=== PATIENT | female | born 1960 | race Caucasian/White ===

== ENCOUNTER → 2019-02-27 09:43 | Outpatient (CLI) | payer OTHER, SELFPAY ==
[2019-02-27 11:06] LABS: Alanine Aminotransferase 63 IU/L (9-52); Albumin 4.4 g/dL (3.5-5.0); Albumin Globulin Ratio 1.3 (1.0-2.8); Alkaline Phosphatase 83 U/L (38-126); Aspartate Aminotransferase 42 IU/L (14-36); BUN Creatinine Ratio 17.5 (6-22); Bilirubin Total 0.4 mg/dL (0.2-1.3); Blood Urea Nitrogen 14 mg/dL (7-17); Calcium 9.4 mg/dL (8.4-10.2); Carbon Dioxide 29 mmol/L (22-32); Chloride 105 mmol/L (98-107); Cholesterol 169 mg/dL (140-199); Estimated Glomerular Filt Rate > 60.0 mL/min (>60); Globulin 3.5 g/dL (1.7-4.1); Glucose 91 mg/dL (70-100); HDL Cholesterol 76 mg/dL (40-60); HEMOLYSIS < 15 (0-50); LDL Cholesterol Calculated 82 mg/dL (<100); Potassium 3.9 mmol/L (3.4-5.1); Sodium 142 mmol/L (137-145); Total Protein 7.9 g/dL (6.3-8.2); Triglycerides 55 mg/dL (35-150)
[2019-02-27 11:37] LABS: Thyroid Stimulating Hormone 2.58 uIU/mL (0.47-4.68)
== END ==
PROVIDERS: PCP Physician Assistant; Visit Provider Physician Assistant
DX: E78.5 Hyperlipidemia, unspecified (principal); Z79.51 Long term (current) use of inhaled steroids
CPT/HCPCS: 36415; 80053; 80061; 84443

== ENCOUNTER → 2019-03-08 14:38 | Outpatient (CLI) | payer OTHER, SELFPAY | PROVIDERS: PCP Physician Assistant; Visit Provider Physician Assistant | DX: M85.852 Other specified disorders of bone density and structure, left thigh (principal); Z78.0 Asymptomatic menopausal state; E28.39 Other primary ovarian failure; Z79.51 Long term (current) use of inhaled steroids | CPT/HCPCS: 77080 ==

== ENCOUNTER → 2019-03-20 12:57 | Outpatient (CLI) | payer OTHER, SELFPAY | PROVIDERS: PCP Physician Assistant; Visit Provider Physician Assistant | DX: Z01.84 Encounter for antibody response examination (principal) | CPT/HCPCS: 36415; 86765 ==

== ENCOUNTER → 2019-06-20 12:13 | Outpatient (CLI) | payer OTHER, SELFPAY ==
[2019-06-20 12:48] LABS: Add Manual Diff / Slide Review NO; Basophils Absolute Auto 100 /uL (0-100); Basophils Percent Auto 0.8 % (0-2); Eosinophils Absolute Auto 100 /uL (0-450); Eosinophils Percent Auto 1.4 % (2-4); Hematocrit 42.1 % (36-46); Hemoglobin 14.1 g/dL (12.0-16.0); Lymphocytes Absolute Auto 1400 /uL (1100-4500); Mean Corpuscular HGB Conc 33.4 % (30-36); Mean Corpuscular Hemoglobin 30.1 PG (26-34); Monocytes Absolute Auto 500 /uL (0-900); Monocytes Percent Auto 7.2 % (3-14); Neutrophils Absolute Auto 5100 /uL (1500-7000); Neutrophils Percent Auto 70.6 % (50-75); Platelet Count 270 X10^3/uL (150-400); Red Blood Cell Count 4.68 X10^6/uL (4.0-5.2); Red Cell Distribution Width 13.4 % (11.6-14.8); White Blood Cell Count 7.2 X10^3/uL (4.5-11.0)
[2019-06-20 13:18] LABS: BUN Creatinine Ratio 24.3 (6-22); Blood Urea Nitrogen 17 mg/dL (7-17); Calcium 9.9 mg/dL (8.4-10.2); Carbon Dioxide 29 mmol/L (22-32); Chloride 105 mmol/L (98-107); Estimated Glomerular Filt Rate > 60.0 mL/min (>60); Glucose 91 mg/dL (70-100); HEMOLYSIS < 15 (0-50); Sodium 141 mmol/L (137-145)
== END ==
PROVIDERS: PCP Physician Assistant; Visit Provider Hospitalist
DX: R42 Dizziness and giddiness (principal)
CPT/HCPCS: 36415; 80048; 85025

== ENCOUNTER → 2019-07-02 17:06 | Outpatient (CLI) | payer OTHER, SELFPAY ==
--- NOTE | 2019-07-02 | DI.MG.S_ITS ---
BILATERAL DIGITAL SCREENING MAMMOGRAM 3D/2D WITH CAD: 07/02/2019 CLINICAL: Routine screening. Comparison is made to exams dated: 03/08/2016 mammogram, 03/08/2017 mammogram, 03/28/2017 ultrasound, and 05/04/2018 mammogram - [facility]. The tissue of both breasts is heterogeneously dense. This may lower the sensitivity of mammography. Current study was also evaluated with a Computer Aided Detection (CAD) system. There is a biopsy clip in the right breast. No significant masses, calcifications, or other findings are seen in either breast. There has been no significant interval change. IMPRESSION: NEGATIVE There is no mammographic evidence of malignancy. A 1 year screening mammogram is recommended. This exam was interpreted at Station ID: [id number]. NOTE: For mammograms, a report in lay terms will be sent to the patient. Approximately 15% of breast malignancies will not be visualized mammographically. In the management of a palpable breast mass, a negative mammogram must not discourage biopsy of a clinically suspicious lesion. Electronically Signed By: Rich germain/toi:07/03/2019 08:18:29 letter sent: Normal Exam ACR BI-RADS Category 1: Negative 3341F
== END ==
PROVIDERS: Family Provider Physician Assistant; PCP Physician Assistant; Visit Provider Physician Assistant
DX: Z12.31 Encounter for screening mammogram for malignant neoplasm of breast (principal)
CPT/HCPCS: 77063; 77067

== ENCOUNTER → 2019-09-03 10:24 | Outpatient (CLI) | payer OTHER, SELFPAY ==
[2019-09-03 11:48] LABS: Alanine Aminotransferase 43 IU/L (<35); Albumin 4.6 g/dL (3.5-5.0); Albumin Globulin Ratio 1.6 (1.0-2.8); Alkaline Phosphatase 101 U/L (38-126); Aspartate Aminotransferase 30 IU/L (14-36); Bilirubin Total 0.4 mg/dL (0.2-1.3); Bilirubin Unconjugated 0.4 mg/dL (0.0-1.1); Globulin 2.9 g/dL (1.7-4.1); HEMOLYSIS < 15 (0-50); Total Protein 7.5 g/dL (6.3-8.2)
== END ==
PROVIDERS: Family Provider Physician Assistant; PCP Physician Assistant; Visit Provider Physician Assistant
DX: R74.8 Abnormal levels of other serum enzymes (principal)
CPT/HCPCS: 36415; 80076

== ENCOUNTER → 2020-04-10 10:23 | Outpatient (CLI) | payer OTHER, SELFPAY ==
[2020-04-10 11:35] LABS: Hematocrit 41.2 % (36-46); Hemoglobin 13.6 g/dL (12.0-16.0); Mean Corpuscular HGB Conc 33.1 % (30-36); Mean Corpuscular Hemoglobin 29.7 PG (26-34); Mean Corpuscular Volume 89.8 fL (80-100); Platelet Count 277 X10^3/uL (150-400); Red Blood Cell Count 4.59 X10^6/uL (4.0-5.2); Red Cell Distribution Width 13.6 % (11.6-14.8); White Blood Cell Count 7.7 X10^3/uL (4.5-11.0)
[2020-04-10 12:01] LABS: Alanine Aminotransferase 55 IU/L (<35); Albumin 4.3 g/dL (3.5-5.0); Albumin Globulin Ratio 1.3 (1.0-2.8); Alkaline Phosphatase 114 U/L (38-126); Aspartate Aminotransferase 35 IU/L (14-36); BUN Creatinine Ratio 19.3 (6-22); Bilirubin Total 0.6 mg/dL (0.2-1.3); Blood Urea Nitrogen 16 mg/dL (7-17); Calcium 9.9 mg/dL (8.4-10.2); Carbon Dioxide 30 mmol/L (22-32); Chloride 104 mmol/L (98-107); Cholesterol 175 mg/dL (140-199); Estimated Glomerular Filt Rate > 60.0 mL/min (>60); Globulin 3.2 g/dL (1.7-4.1); Glucose 85 mg/dL (70-100); HDL Cholesterol 65 mg/dL (40-60); HEMOLYSIS < 15 (0-50); LDL Cholesterol Calculated 91 mg/dL (<100); Potassium 4.8 mmol/L (3.4-5.1); Sodium 138 mmol/L (137-145); Total Protein 7.5 g/dL (6.3-8.2); Triglycerides 97 mg/dL (35-150)
== END ==
PROVIDERS: Family Provider Physician Assistant; Referring Provider Nurse Practitioner Family; Visit Provider Nurse Practitioner Family
DX: Z00.00 Encounter for general adult medical examination without abnormal findings (principal); E78.00 Pure hypercholesterolemia, unspecified; J45.40 Moderate persistent asthma, uncomplicated
CPT/HCPCS: 36415; 80053; 80061; 85027

== ENCOUNTER → 2020-05-16 08:51 | Outpatient (CLI) | payer OTHER, SELFPAY ==
[2020-05-16 10:33] LABS: Alanine Aminotransferase 41 IU/L (<35); Albumin 4.3 g/dL (3.5-5.0); Albumin Globulin Ratio 1.4 (1.0-2.8); Alkaline Phosphatase 77 U/L (38-126); Aspartate Aminotransferase 33 IU/L (14-36); Bilirubin Total 0.4 mg/dL (0.2-1.3); Bilirubin Unconjugated 0.4 mg/dL (0.0-1.1); Globulin 3.1 g/dL (1.7-4.1); HEMOLYSIS < 15 (0-50); Total Protein 7.4 g/dL (6.3-8.2)
== END ==
PROVIDERS: Family Provider Physician Assistant; PCP Nurse Practitioner Family; Referring Provider Nurse Practitioner Family; Visit Provider Nurse Practitioner Family
DX: R74.8 Abnormal levels of other serum enzymes (principal)
CPT/HCPCS: 36415; 80076

== ENCOUNTER → 2020-05-30 10:23 | Outpatient (CLI) | payer OTHER, SELFPAY ==
[2020-05-30 12:56] LABS: TSH w/ Reflex to FT4 1.42 uIU/mL (0.47-4.68)
[2020-05-31 09:09] LABS: HBsAg Screen Negative (Negative); Hepatitis A Antibody IgM Negative (Negative); Hepatitis B Core Antibody IgM Negative (Negative); Hepatitis C Antibody 0.1 s/co ratio (0.0-0.9)
[2020-06-01 12:36] LABS: ANA Screen, IFA Negative (.)
[2020-06-04 15:48] LABS: Smooth Muscle Antibody 7 Units (0-19)
== END ==
PROVIDERS: Family Provider Physician Assistant; PCP Nurse Practitioner Family; Referring Provider Nurse Practitioner Family; Visit Provider Nurse Practitioner Family
DX: R74.8 Abnormal levels of other serum enzymes (principal)
CPT/HCPCS: 36415; 80074; 83516; 84443; 86038

== ENCOUNTER → 2020-06-03 17:06 | Outpatient (CLI) | payer OTHER, SELFPAY ==
--- NOTE | 2020-06-03 17:09 | DI.US.S_ITS ---
PROCEDURE: US ABDOMEN COMPLETE INDICATIONS: elevated enzymes TECHNIQUE: Real-time scanning was performed of the abdominal and retroperitoneal organs, with image documentation. COMPARISON: None. FINDINGS: Liver: Liver is normal in size and homogeneous in echotexture. Gallbladder: The gallbladder wall measures 1.4 mm in diameter. No stones, sludge, pericholecystic fluid, or sonographic Parra sign. Multiple hyperechoic nonmobile foci are present along the gallbladder wall, the largest of which measures 5 mm in diameter and likely represents small gallbladder polyps. Biliary ducts: Intrahepatic bile ducts are non-dilated. Extrahepatic bile duct caliber measures 1.6 mm. Normal is 6-7 mm or less in diameter, or 10 mm or less post-cholecystectomy. Pancreas: Visualized portions of the pancreas are sonographically normal. Spleen: Spleen is normal in size and homogeneous in echotexture. Kidneys: Kidneys are normal in size and echotexture. Right kidney measures 11.3 cm long; left kidney measures 11.1 cm long. No hydronephrosis or nephrolithiasis. No solid masses. Aorta: Visualized aorta is normal in caliber at less than 3 cm. Iliacs: Proximal common iliac arteries are normal in caliber at less than 2.5 cm. IVC: Intrahepatic inferior vena cava is patent. Miscellaneous: No free abdominal fluid. IMPRESSION: 1. Gallbladder polyps under 6 mm in diameter. No further surveillance recommended. 2. No cholelithiasis or findings to suggest choledocholithiasis or acute cholecystitis. Dictated by: Lacey Vieira M.D. on 06/04/2020 at 11:03 Approved by: Lacey Vieira M.D. on 06/04/2020 at 11:24
== END ==
PROVIDERS: Family Provider Physician Assistant; PCP Nurse Practitioner Family; Referring Provider Nurse Practitioner Family; Visit Provider Nurse Practitioner Family
DX: R74.8 Abnormal levels of other serum enzymes (principal)
CPT/HCPCS: 76700

== ENCOUNTER → 2020-08-04 17:19 | Outpatient (CLI) | payer OTHER, SELFPAY ==
--- NOTE | 2020-08-04 17:20 | DI.MG.S_ITS ---
BILATERAL DIGITAL SCREENING MAMMOGRAM 3D/2D WITH CAD: 08/04/2020 CLINICAL: Routine screening. Comparison is made to exams dated: 07/02/2019 mammogram - [facility], 05/04/2018 mammogram, and 03/08/2017 mammogram - [facility]. The tissue of both breasts is heterogeneously dense. This may lower the sensitivity of mammography. Current study was also evaluated with a Computer Aided Detection (CAD) system. There is a biopsy clip in the right breast. No significant masses, calcifications, or other findings are seen in either breast. There has been no significant interval change. IMPRESSION: NEGATIVE There is no mammographic evidence of malignancy. A 1 year screening mammogram is recommended. This exam was interpreted at Station ID: [id number]. NOTE: For mammograms, a report in lay terms will be sent to the patient. Approximately 15% of breast malignancies will not be visualized mammographically. In the management of a palpable breast mass, a negative mammogram must not discourage biopsy of a clinically suspicious lesion. Electronically Signed By: Rachid prince/toi:08/04/2020 18:01:06 letter sent: Normal Exam ACR BI-RADS Category 1: Negative 3341F
== END ==
PROVIDERS: Family Provider Physician Assistant; PCP Nurse Practitioner Family; Referring Provider Nurse Practitioner Family; Visit Provider Nurse Practitioner Family
DX: Z12.31 Encounter for screening mammogram for malignant neoplasm of breast (principal)
CPT/HCPCS: 77063; 77067

== ENCOUNTER → 2020-11-14 10:05 | Outpatient (CLI) | payer OTHER, SELFPAY ==
[2020-11-14 11:25] LABS: Alanine Aminotransferase 37 IU/L (<35); Albumin 4.5 g/dL (3.5-5.0); Albumin Globulin Ratio 1.6 (1.0-2.8); Alkaline Phosphatase 71 U/L (38-126); Aspartate Aminotransferase 32 IU/L (14-36); BUN Creatinine Ratio 22.7 (6-22); Bilirubin Total 0.4 mg/dL (0.2-1.3); Blood Urea Nitrogen 17 mg/dL (7-17); Calcium 9.5 mg/dL (8.4-10.2); Carbon Dioxide 30 mmol/L (22-32); Chloride 105 mmol/L (98-107); Estimated Glomerular Filt Rate > 60.0 mL/min (>60); Globulin 2.9 g/dL (1.7-4.1); Glucose 65 mg/dL (80-110); HEMOLYSIS < 15 (0-50); Potassium 3.9 mmol/L (3.4-5.1); Sodium 141 mmol/L (137-145); Total Protein 7.4 g/dL (6.3-8.2)
== END ==
PROVIDERS: Family Provider Physician Assistant; PCP Nurse Practitioner Family; Referring Provider Nurse Practitioner Family; Visit Provider Nurse Practitioner Family
DX: R74.8 Abnormal levels of other serum enzymes (principal)
CPT/HCPCS: 36415; 80053

== ENCOUNTER 2020-12-27 09:09 | Emergency (ER) | payer OTHER, SELFPAY ==
[2020-12-27] VITALS (8 sets, daily range): BP systolic 138–163; BP diastolic 65–76; PULSE 59–82; RESP 11–23; TEMP 35.9–36.9; O2SAT 89–100; BMI 26.6
--- NOTE | 2020-12-27 09:13 | DI.RAD.S_ITS ---
PROCEDURE: XR CHEST 1V INDICATIONS: Chest pain TECHNIQUE: One view of the chest was acquired. COMPARISON: None. FINDINGS: Surgical changes and devices: None. Lungs and pleura: There is a right perihilar masslike opacity seen that measures up to 4.5 cm. Lungs are otherwise clear. No pleural effusions or pneumothorax. Mediastinum: Mediastinal contours appear normal. Heart size is normal. Bones and chest wall: No suspicious bony lesions. Mild dextroconvex scoliotic curvature is seen. Age-appropriate bony degenerative changes are seen. Overlying soft tissues appear unremarkable. IMPRESSION: 4.5 cm right perihilar masslike opacity seen. Concern is raised for neoplasm, although differential diagnosis would also focal atelectasis and prominent vascular structures. When clinically appropriate, a dedicated chest CT with IV contrast would be recommended for further evaluation. Note: Findings and recommendations discussed by telephone with Dr. Fernandes at 8:32 a.m. [place] time on December 27, 2020. Dictated by: Bernabe Mccain M.D. on 12/27/2020 at 8:31 Approved by: Bernabe Mccain M.D. on 12/27/2020 at 8:34
[2020-12-27 09:36] LABS: Add Manual Diff / Slide Review NO; Basophils Absolute Auto 100 /uL (0-100); Eosinophils Absolute Auto 100 /uL (0-450); Eosinophils Percent Auto 1.8 % (2-4); Hematocrit 40.9 % (36-46); Hemoglobin 14.1 g/dL (12.0-16.0); Lymphocytes Absolute Auto 1500 /uL (1100-4500); Lymphocytes Percent Auto 22.2 % (25-40); Mean Corpuscular HGB Conc 34.5 % (30-36); Mean Corpuscular Hemoglobin 30.8 PG (26-34); Mean Corpuscular Volume 89.3 fL (80-100); Monocytes Absolute Auto 500 /uL (0-900); Neutrophils Absolute Auto 4400 /uL (1500-7000); Platelet Count 232 X10^3/uL (150-400); Red Blood Cell Count 4.59 X10^6/uL (4.0-5.2); Red Cell Distribution Width 13.2 % (11.6-14.8); White Blood Cell Count 6.6 X10^3/uL (4.5-11.0)
[2020-12-27 09:42] LABS: Alanine Aminotransferase 37 IU/L (<35); Albumin 4.4 g/dL (3.5-5.0); Albumin Globulin Ratio 1.4 (1.0-2.8); Alkaline Phosphatase 74 U/L (38-126); Aspartate Aminotransferase 33 IU/L (14-36); BUN Creatinine Ratio 23.3 (6-22); Bilirubin Total 0.3 mg/dL (0.2-1.3); Blood Urea Nitrogen 17 mg/dL (7-17); Calcium 9.8 mg/dL (8.4-10.2); Carbon Dioxide 30 mmol/L (22-32); Chloride 105 mmol/L (98-107); Creatine Kinase 195 U/L (30-135); Estimated Glomerular Filt Rate > 60.0 mL/min (>60); Globulin 3.2 g/dL (1.7-4.1); Glucose 99 mg/dL (80-110); HEMOLYSIS < 15 (0-50); Lipase 159 U/L (23-300); Potassium 4.3 mmol/L (3.4-5.1); Sodium 141 mmol/L (137-145); Total Protein 7.6 g/dL (6.3-8.2)
[2020-12-27] MEDS: SODIUM CHLORIDE 0.9% 1,000 ML 1000 ML IV (09:47)
[2020-12-27 09:53] LABS: Troponin I < 0.012 ng/mL (0.01-0.034)
[2020-12-27 09:57] LABS: CKMB % Relative Index 1.6 % (1.5-5.0); Creatine Kinase MB 3.18 ng/mL (<2.37)
--- NOTE | 2020-12-27 10:19 | ED.CHESTPAIN ---
HPI - Chest Pain General Chief Complaint: Chest Pain Stated Complaint: LEFT SIDE CHEST AND ARM PAIN Time Seen by Provider: 12/27/20 09:12 Source: patient Mode of arrival: Family Vehicle Limitations: no limitations History of Present Illness HPI narrative: Patient is a 60-year-old female who reports only past medical history is asthma. Here for evaluation of pain to left side of her neck and her left shoulder and down the left side of her are. States started last evening around dinnertime and continued last evening. It was worse when she laid on her left side. She stated that she did not have any chest pain. No shortness of breath. The time of my evaluation she felt like things were improving somewhat. She is afebrile. Has not tried anything for the symptoms Related Data Home Medications Medication Instructions Recorded Confirmed Glucosamine/Chondroitin 1 cap PO DAILY 02/27/19 12/02/20 multivitamin 1 tab PO DAILY 02/27/19 12/02/20 Calcium/Vitamin D3 2 tab PO DAILY 03/20/19 12/02/20 Previous Rx's Medication Instructions Recorded albuterol sulfate 90 mcg/actuation 1 - 2 puff INHALATION Q4-6H PRN #8 04/09/20 aerosol inhaler gram atorvastatin 40 mg tablet 40 mg PO BEDTIME #90 tab 04/09/20 fluticasone 250 mcg-salmeterol 50 1 inhalation INHALATION BID #180 04/09/20 mcg/dose blistr powdr for each inhalation montelukast 10 mg tablet 10 mg PO QPM #90 tab 04/09/20 Allergies Allergy/AdvReac Type Severity Reaction Status Date / Time amoxicillin Allergy Mild Rash and Verified 12/02/20 16:09 hives Review of Systems Constitutional Constitutional: Denies fatigue, Denies fever(s) and Denies headache(s) ENT Ears, Nose, Mouth, and Throat: Denies dizziness and Denies headache(s) Cardiovascular Cardiovascular: Denies chest pain and Denies dyspnea Respiratory Respiratory: Denies dyspnea Gastrointestinal Gastrointestinal: Denies abdominal pain, Denies nausea and Denies vomiting Genitourinary Genitourinary: Denies dysuria Genitourinary: Denies dysuria Musculoskeletal Comments: Left side of neck and left shoulder and left arm pain Integumentary/Breasts Skin/Breast: Denies lesions and Denies rash Neurologic Neurologic: Denies behavioral changes, Denies dizziness and Denies headache(s) Psychiatric Psychiatric: Denies behavioral changes Endocrine Endocrine: Denies fatigue Hematologic/Lymphatic On Anticoagulants: No Allergic/Immunologic Allergic/Immunologic: Denies urticaria Patient History Medical History Abnormal Pap smear of cervix (~1989) Actinic keratosis Asthma (~2000) Chicken pox (~1967) History of urinary incontinence (~1995) Liver enzyme elevation Low blood sugar (11/2020) Seasonal allergies (~2014) Skin problem (~2013) Vision disorder Surgical History Anesthesia History of section (~1990) History of colonoscopy (~2009) S/P LEEP (~1997) Family History Father History of heart disease Mother Diabetes mellitus Sister Arthritis Sister Rheumatoid arthritis Grandfather History of heart disease Social History Smoking Status: Never smoker second hand exposure: Yes (I was until 2 years ago (as of 02/27/19).) alcohol intake: current (wine on occasions.) substance use type: does not use Smoking Status: Never smoker alcohol intake frequency: 0-2 drinks per day Substance Use Type: does not use Exam Initial Vital Signs Initial Vital Signs: Vital Signs Temperature 96.6 F L 12/27/20 09:18 Pulse Rate 79 12/27/20 09:18 Respiratory Rate 18 12/27/20 09:18 Blood Pressure 163/76 H 12/27/20 09:18 Pulse Oximetry 98 12/27/20 09:18 Const General: cooperative and comfortable Limitations: mental status not altered [facility] Head: normal to inspection and normocephalic Neck Lymphatic: No lymphadenopathy Chest Chest: No crepitus and No tenderness Resp Effort & Inspection: normal respiratory effort Auscultation: clear to auscultation bilaterally Cardio Rate: regular rate Rhythm: regular rhythm GI Inspection: non-distended Palpation: soft, No firm and No tender Back/Spine/Pelvis Cervical Spine: No cervical muscular tenderness and No cervical spinal tenderness Thoracic/Lumbar Spine: No thoracic spinal tenderness and No lumbar spinal tenderness Skin Lesions: no lesions Rashes: no rashes Neuro General: patient alert, patient awake and patient oriented x3 Cognition: normal cognition Speech: speech normal Extrem General: normal to inspection and capillary refill normal Psych Appearance: grossly normal and well kempt Scores HEART Score Heart Score history: Slightly Suspicious Heart Score EKG: Normal Heart Score Age: 45-64 years old Heart Score risk factors: No known risk factors Heart Score troponin: < or = to normal limit Heart Score Total: 1 Course Orders Ordered: ED Orders 12/27/20 09:09 EKG-12 Lead Stat 12/27/20 09:13 XR chest 1V Stat 12/27/20 09:22 Complete Blood Count AUTO DIFF Stat Comprehensive Metabolic Panel Stat Lipase Stat Troponin & CK Cardiac Panel Stat 12/27/20 10:20 CT chest w con Stat Discontinued Medications Sodium Chloride (Normal Saline 0.9%) 1,000 mls @ 1,000 mls/hr IV BOLUS ONE Stop: 12/27/20 10:11 Last Infusion: 12/27/20 12:03 Dose: 0 mls/hr Documented by: Admin: 12/27/20 09:47 Dose: 1,000 mls/hr Documented by: JOSH Vital Signs Vital signs: Vital Signs - 8 hr 12/27/20 09:18 12/27/20 09:30 12/27/20 10:00 Temperature 96.6 F L Pulse Rate 79 62 59 L Respiratory Rate 18 11 L 17 Blood Pressure 163/76 H Pulse Oximetry 98 98 98 12/27/20 10:30 12/27/20 11:00 12/27/20 11:31 Temperature Pulse Rate 76 75 82 Respiratory Rate 15 15 Blood Pressure Pulse Oximetry 99 100 89 L 12/27/20 11:51 12/27/20 11:52 Temperature 98.4 F Pulse Rate 68 Respiratory Rate 23 Blood Pressure 138/65 Pulse Oximetry 99 MDM - Chest Pain Lab Data Attestation: I reviewed the patient's lab results. Result diagrams: 12/27/20 09:22 12/27/20 09:22 Labs: Lab Results 12/27/20 12/27/20 Range/Units 09:22 09:22 WBC 6.6 (4.5-11.0) X10^3/uL RBC 4.59 (4.0-5.2) X10^6/uL Hgb 14.1 (12.0-16.0) g/dL Hct 40.9 (36-46) % MCV 89.3 (80-100) fL MCH 30.8 (26-34) PG MCHC 34.5 (30-36) % RDW 13.2 (11.6-14.8) % Plt Count 232 (150-400) X10^3/uL Neut % (Auto) 67.0 (50-75) % Lymph % (Auto) 22.2 L (25-40) % Woodson % (Auto) 8.0 (3-14) % Eos % (Auto) 1.8 L (2-4) % Baso % (Auto) 1.0 (0-2) % Neut # (Auto) 4400 (0960-5554) /uL Lymph # (Auto) 1500 (3493-2672) /uL Woodson # (Auto) 500 (0-900) /uL Eos # (Auto) 100 (0-450) /uL Baso # (Auto) 100 (0-100) /uL Sodium 141 (137-145) mmol/L Potassium 4.3 (3.4-5.1) mmol/L Chloride 105 (98-107) mmol/L Carbon Dioxide 30 (22-32) mmol/L BUN 17 (7-17) mg/dL Creatinine 0.73 (0.52-1.04) mg/dL Estimated GFR > 60.0 (>60) mL/min BUN/Creatinine Ratio 23.3 H (6-22) Glucose 99 (80-110) mg/dL Calcium 9.8 (8.4-10.2) mg/dL Total Bilirubin 0.3 (0.2-1.3) mg/dL AST 33 (14-36) IU/L ALT 37 H (<35) IU/L Alkaline Phosphatase 74 (38-126) U/L Total Creatine Kinase 195 H (30-135) U/L CK-MB (CK-2) 3.18 H (<2.37) ng/mL CK-MB (CK-2) Rel Index 1.6 (1.5-5.0) % Troponin I < 0.012 (0.01-0.034) ng/mL Total Protein 7.6 (6.3-8.2) g/dL Albumin 4.4 (3.5-5.0) g/dL Globulin 3.2 (1.7-4.1) g/dL Albumin/Globulin Ratio 1.4 (1.0-2.8) Lipase 159 (23-300) U/L Imaging Data Chest x-ray: Radiologist's Impression: [address] [id number] ReportSigned Patient: Laura Bartholomew MMR#: [id number]: 1960Acct:[id number]/Sex: 60 / FDate of Service: 12/27/20Loc: EDAccession Number: [id number] Procedure: XR chest 1V Ordering Provider: Tim Fernandes D.O. PROCEDURE: XR CHEST 1V INDICATIONS: Chest pain TECHNIQUE: One view of the chest was acquired. COMPARISON: None. FINDINGS: Surgical changes and devices: None. Lungs and pleura: There is a right perihilar masslike opacity seen that measures up to 4.5 cm. Lungs are otherwise clear. No pleural effusions or pneumothorax. Mediastinum: Mediastinal contours appear normal. Heart size is normal. Bones and chest wall: No suspicious bony lesions. Mild dextroconvex scoliotic curvature is seen. Age-appropriate bony degenerative changes are seen. Overlying soft tissues appear unremarkable. IMPRESSION: 4.5 cm right perihilar masslike opacity seen. Concern is raised for neoplasm, although differential diagnosis would also focal atelectasis and prominent vascular structures. When clinically appropriate, a dedicated chest CT with IV contrast would be recommended for further evaluation. Note: Findings and recommendations discussed by telephone with Dr. Fernandes at 8:32 a.m. [place] time on December 27, 2020. Dictated by: Bernabe Mccain M.D. on 12/27/2020 at 8:31 Approved by: Bernabe Mccain M.D. on 12/27/2020 at 8:3 CT scan - chest: Radiologist's Impression: [address] [id number] Scan ReportSigned Patient: aLura Bartholomew MMR#: [id number]: 1960Acct:[id number]/Sex: 60 / FDate of Service: 12/27/20Loc: EDAccession Number: [id number] Procedure: CT chest w con Ordering Provider: Tim Fernandes D.O. PROCEDURE: CT CHEST W CON INDICATIONS: Mass seen on chest x-ray TECHNIQUE: After the administration of intravenous contrast, 5 mm thick sections acquired from the pulmonary apices to the posterior costophrenic angles. 1 mm axial lung, 5 mm thick coronal and sagittal reformats and 7 mm axial MIP were acquired. For radiation dose reduction, the following was used: automated exposure control, adjustment of mA and/or kV according to patient size. COMPARISON: [facility], CR, XR CHEST 1V, 12/27/2020, 9:18. FINDINGS: Lungs: In the area described on the radiographic comparison study, there is a heterogeneous partially calcified and well-marginated ovoid mass which measures 4.2 x 2.8 cm on image 34/2 . This is seen in the region of the fissure in there is intermediate attenuation. There is also additional scarring/atelectasis in the fissure and right middle lobe Pleura: No pleural effusion or pneumothorax. Heart: Heart size is normal. No pericardial effusion. Chest nodes: Normal. Thyroid gland: Negative Aorta: Normal. Pulmonary arteries: Normal Esophagus: Normal Upper abdomen: Hepatic steatosis Bones: Normal. IMPRESSION: Heterogeneous mass involving the right fissure, with areas of calcification and adjacent fissural atelectasis/scarring. Technically this could represent bronchogenic malignancy, although recommend further evaluation with PET-CT to exclude chronic granulomatous change, given the absence of any prior studies. If any prior comparison chest imaging is obtainable, this would be most helpful and an addendum could be performed. Dictated by: Tito Page M.D. on 12/27/2020 at 10:52 Approved by: Tito Page M.D. on 12/27/2020 at 10:58 ECG Data Attestation: I personally reviewed and interpreted this ECG as follows: Prior ECG tracings: not available for review Interpretation: Sinus rhythm Ventricular rate is 60 Normal axis Normal QRS Normal QTC No ST T wave changes MDM Narrative Medical decision making narrative: Patient's presentation today is less likely ACS and more likely musculoskeletal. She stated that she had pain in her left shoulder that radiated down her left arm and is worse when she was lying on that side. She had no left sided chest pain. No shortness of breath. The chest x-ray today shows right-sided mass. This is confirmed with CT scan of the chest. The CT scan was performed because of the mass noted on the x-ray not because of her presenting symptoms. We discussed her presenting symptoms we discussed conservative measures she can do at home. She was also informed of the mass noted on her chest. I discussed the case with Dr. Issa who is on-call for the patient's primary provider who will let the patient's primary provider know of the findings today. I also told the patient that she needed to contact her primary doctor tomorrow for further workup. She was given return precautions. She expressed understanding agreement. Discharge Plan Departure Patient Disposition: Home Clinical Impression: Mass of left lung, Left shoulder pain Instructions: DI for Arm Pain Activity Restrictions/Additional Instructions: There was the incidental finding of the mass in the right lung. This is important that you follow-up with your primary doctor. Recommend you contact your primary doctor tomorrow. Their phone numbers [phone]. Return to the emergency department for any new or worsening symptoms Prescriptions: No Action multivitamin tablet 1 tab PO DAILY RF: 0 Glucosamine/Chondroitin 1 cap PO DAILY RF: 0 Calcium/Vitamin D3 2 tab PO DAILY RF: 0 montelukast 10 mg tablet 10 mg PO QPM Qty: 90 RF: 2 albuterol sulfate [ProAir HFA] 90 mcg/actuation HFA aerosol inhaler 1 - 2 puff INHALATION Q4-6H PRN (Reason: asthma and shortness of breath) Qty: 8 RF: 5 atorvastatin [Lipitor] 40 mg tablet 40 mg PO BEDTIME Qty: 90 RF: 3 fluticasone propion-salmeterol [Advair Diskus] 250-50 mcg/dose blister with device 1 inhalation INHALATION BID Qty: 180 RF: 3 Referrals: Tyler Menchaca ARNP [Primary Care Provider] -
== END 2020-12-27 12:10 | disposition home or self-care (01) ==
PROVIDERS: Emergency Provider Emergency Medicine; Family Provider Physician Assistant; PCP Nurse Practitioner Family
DX: R91.8 Other nonspecific abnormal finding of lung field (principal); M25.512 Pain in left shoulder; R07.9 Chest pain, unspecified
CPT/HCPCS: 36415; 71045; 71260; 80053; 82550; 82553; 83690; 84484; 85025; 93005; 96360; 96361; 99284; Q9967

== ENCOUNTER → 2021-01-14 14:39 | Outpatient (CLI) | payer OTHER, SELFPAY ==
--- NOTE | 2021-01-14 14:40 | DI.US.S_ITS ---
PROCEDURE: US THYROID INDICATIONS: nodule TECHNIQUE: Real-time scanning was performed of the thyroid gland, with image documentation. COMPARISON: [facility], [place], [place] PET CT FUSION SKULL 2 THIGH, 01/06/2021, 9:48. [facility], CT, CT CHEST W CON, 12/27/2020, 10:30. FINDINGS: Right: Thyroid lobe measures 4.4 x 1.5 x 1.3 cm, and is homogeneous in echotexture. Left: Thyroid lobe measures 4.5 x 1.5 x 1.2 cm, and is homogenous in echotexture. Isthmus: 2.6 mm thick. Nodule number: 1 Location: Left inferior Size: 1.4 x 1.0 x 1.0 cm. Composition: Solid Echogenicity: Hypoechoic Shape: wider than tall. Margins: Irregular Echogenic foci: Punctate Total points: 7 ACR TI-RADS category: 5 Nodule number: 2 Location: Right lobe Size: 0.4 x 0.3 cm. Composition: Cystic Echogenicity: Anechoic Shape: wider than tall. Margins: Smooth Echogenic foci: None Total points: 0 ACR TI-RADS category: 1 IMPRESSION: 1. Lesion 1 corresponds to area of abnormality on recent PET scan. Given TI RADS category and hypermetabolic activity, FNA is recommended for further evaluation. 2. Lesion 2 is considered category 1 and benign. ACR TI-RADS definitions and recommendations: TI-RADS 1 (benign): 0 points. FNA not needed. TI-RADS 2 (not suspicious): 2 points. FNA not needed. TI-RADS 3 (mildly suspicious): 3 points. * FNA if 2.5 cm or larger, follow up if 1.5 cm or larger (at 1, 3, and 5 years). TI-RADS 4 (moderately suspicious): 4-6 points. * FNA if 1.5 cm or larger, follow up if 1 cm or larger (at 1, 2, 3, and 5 years). TI-RADS 5 (highly suspicious): 7 points or more. * FNA if 1 cm or larger, follow up if 0.5 cm or larger (every year for 5 years). Dictated by: Marley Pinto M.D. on 01/14/2021 at 16:08 Approved by: Marley Pinto M.D. on 01/14/2021 at 16:11
== END ==
PROVIDERS: Family Provider Physician Assistant; PCP Nurse Practitioner Family; Referring Provider Nurse Practitioner Family; Visit Provider Nurse Practitioner Family
DX: E04.2 Nontoxic multinodular goiter (principal)
CPT/HCPCS: 76536

== ENCOUNTER → 2021-02-11 12:39 | Outpatient (CLI) | payer OTHER, SELFPAY ==
--- NOTE | 2021-02-11 | PATH_ITS ---
Note [facility] Accession Number: [id number] TESTS RESULT FLAG UNITS REF RANGE LAB 01 L INFERIOR THYROID DIAGNOSIS: 02 L INFERIOR THYROID INCONCLUSIVE. BETHESDA CATEGORY III. ATYPIA OF UNDETERMINED SIGNIFICANCE. COMMENT: There are scattered follicular cell groups with focal mild cytologic atypia. A request for molecular testing on the RNA vial has been submitted. Pathologist ICD10: 02 R89.6, E04.1 01 Abnormal Pap smear of cervix (1995) Actinic Keratosis Lung mass (01/2021) Thyroid Nodule (01/2021) History of urinary incontinence(1995) 02 Reason for addendum: To report molecular studies (ThyGeNEXT with reflex to ThyraMIR). . Thyroid FNA: . ThyGeNEXT Oncogene Panel: No mutations detected. . ThyraMIR Hitesh Superintendent Recreation: Very low risk of malignancy. . COMMENT: Please see the complete reports from [employer], [place], [place] (specimen ID [id number] (ThyGeNEXT) and (ThyraMIR)) reported on 02/25/2021. [facility]/03/19/2021 Addendum Electronically Signed by Jolly Krishnan MD, Pathologist 02 Jolly Krishnan MD, Pathologist NPI- [id number] Eduardo Reyes, Automatic Chief ([facility]) 01 30 CC, PALE PINK, CLEAR Also received 1 RNA vial, 6 quick-stained, 6 alcohol fixed slides. /[facility] 02/12/2021 1052 [facility] FLAG LEGEND: L-Low Normal,H-High Normal,LL-Alert Low,HH-Alert High <-Panic Low,>-Panic High,A-Abnormal,AA-Critical Abnormal Performed at: 01 =[facility] [address] [place] [address] [address], [place] [address] Дмитрий Mars MD, 02 [facility] [id number] [place] [id number] Diandra Mayo MD, Performed at: 01 [facility] Cytology [address] [place] [address] [address], [place], [place] [id number] MD Дмитрий Mars MD Phone: [phone]
--- NOTE | 2021-02-11 12:40 | DI.US.S_ITS ---
PROCEDURE: US FINE NEEDLE ASPIRATION INDICATIONS: LEFT THYROID INFERIOR NODULE TECHNIQUE: The indications, alternatives, benefits, risks, and complications of the procedure were explained to the patient. Written informed consent was obtained and placed in the chart. The thyroid region was examined sonographically and a site was chosen for ultrasound guided percutaneous sampling. The skin was prepared and draped in the usual fashion, and anesthetized with 1% lidocaine infiltrated from the skin down to the thyroid gland. Multiple passes were then performed, with contents emptied into an appropriate pathology specimen container. A bandage was applied to the area of access at completion of the study. COMPARISON: [facility], [place], [place] PET CT FUSION SKULL 2 THIGH, 01/06/2021, 9:48. [facility], [place], [place] THYROID, 01/14/2021, 15:14. FINDINGS: Location(s) of lesion(s) sampled: Left inferior thyroid lobe [place]: 25 gauge hypodermic needles. Number of passes: 7 Medications: 1% lidocaine for local anaesthesia. Complications: None. IMPRESSION: 1.Successful ultrasound-guided thyroid nodule fine needle aspiration, with cytology results pending. Please see chart below for management recommendations based on cytology results. 2. The nodule is relatively small and located in posterior inferior right thyroid lobe, flank by the left common carotid artery and jugular vein, therefore, challenging for percutaneous aspiration biopsy. If histology is inconclusive, a I-123 thyroid scan may be helpful. [place] [facility] ReportingRecommendationsNon-diagnostic* Repeat US-guided FNA, with on-site cytology evaluation if possible. * Repeated non-diagnostic nodules without high suspicion US features: close observation vs surgical consult. * Consider surgery if nodule has high suspicion US features, grows >20% in 2 dimensions on followup, or patient has clinical risk factors for malignancy. Benign* If nodule has high suspicion US features: repeat US and FNA within 12 months. * If nodule has low to intermediate suspicion US features: repeat US at 12-24 months. If nodule grows (20% increase in at least 2 dimensions, with minimal increase of 2 mm or >50% change in volume), or development of new suspicious US features, then repeat FNA or continue followup. * If nodule has very low suspicion US features: followup US at >24 months. Atypia of undetermined significance, follicular lesion of undetermined significanceRepeat FNA, molecular testing, followup US, or surgical consult.Follicular neoplasm, suspicious for follicular neoplasmSurgical consult; also consider molecular testing. Suspicious for malignancySurgical consult.MalignantSurgical consult. Dictated by: Shravan Ace M.D. on 02/11/2021 at 17:17 Approved by: Shravan Ace M.D. on 02/11/2021 at 17:20
== END ==
PROVIDERS: Family Provider Physician Assistant; PCP Nurse Practitioner Family; Referring Provider Nurse Practitioner Family; Visit Provider Nurse Practitioner Family
DX: E04.1 Nontoxic single thyroid nodule (principal)
CPT/HCPCS: 10005

== ENCOUNTER → 2021-08-12 17:22 | Outpatient (CLI) | payer OTHER, SELFPAY ==
--- NOTE | 2021-08-12 | DI.MG.S_ITS ---
BILATERAL DIGITAL SCREENING MAMMOGRAM 3D/2D WITH CAD: 08/12/2021 CLINICAL: Routine screening. Comparison is made to exams dated: 08/04/2020 mammogram, 07/02/2019 mammogram - [facility], and 05/04/2018 mammogram - [facility]. The tissue of both breasts is heterogeneously dense. This may lower the sensitivity of mammography. Current study was also evaluated with a Computer Aided Detection (CAD) system. There is a biopsy clip in the right breast. No significant masses, calcifications, or other findings are seen in either breast. There has been no significant interval change. IMPRESSION: NEGATIVE There is no mammographic evidence of malignancy. A 1 year screening mammogram is recommended. This exam was interpreted at Station ID: [id number]. NOTE: For mammograms, a report in lay terms will be sent to the patient. Approximately 15% of breast malignancies will not be visualized mammographically. In the management of a palpable breast mass, a negative mammogram must not discourage biopsy of a clinically suspicious lesion. Electronically Signed By: Rich germain/toi:08/13/2021 07:30:40 letter sent: Normal Exam ACR BI-RADS Category 1: Negative [id number]
== END ==
PROVIDERS: Family Provider Physician Assistant; PCP Nurse Practitioner Family; Referring Provider Nurse Practitioner Family; Visit Provider Nurse Practitioner Family
DX: Z12.31 Encounter for screening mammogram for malignant neoplasm of breast (principal)
CPT/HCPCS: 77063; 77067

== ENCOUNTER → 2022-02-24 13:59 | Outpatient (CLI) | payer OTHER, SELFPAY ==
--- NOTE | 2022-02-24 14:00 | DI.US.S_ITS ---
PROCEDURE: US THYROID INDICATIONS: 1 YEAR FOLLOW UP. TECHNIQUE: Real-time scanning was performed of the thyroid gland, with image documentation. COMPARISON: [facility], [place], US FINE NEEDLE ASPIRATION, 02/11/2021, 13:10. [facility], [place], US THYROID, 01/14/2021, 15:14. FINDINGS: Right: Thyroid lobe measures 3.9 x 1.6 x 1.9 cm, and is homogeneous in echotexture. Left: Thyroid lobe measures 4.7 x 1.2 x 1.4 cm, and is homogenous in echotexture. Isthmus: 2.4 mm thick. Nodule number: 1 Location: Left inferior Size: Unchanged 1.4 x 1.0 x 0.9 cm. Composition: Solid Echogenicity: Isoechoic Shape: wider than tall. Margins: Smooth Echogenic foci: None Total points: 3 ACR TI-RADS category: Mildly suspicious IMPRESSION: 1. Stable appearance of 1.4 cm mildly suspicious left thyroid nodule. ACR TI-RADS definitions and recommendations: TI-RADS 1 (benign): 0 points. FNA not needed. TI-RADS 2 (not suspicious): 2 points. FNA not needed. TI-RADS 3 (mildly suspicious): 3 points. * FNA if 2.5 cm or larger, follow up if 1.5 cm or larger (at 1, 3, and 5 years). TI-RADS 4 (moderately suspicious): 4-6 points. * FNA if 1.5 cm or larger, follow up if 1 cm or larger (at 1, 2, 3, and 5 years). TI-RADS 5 (highly suspicious): 7 points or more. * FNA if 1 cm or larger, follow up if 0.5 cm or larger (every year for 5 years). Dictated by: Peter VEGA Interpreted: Mona Negrete MD on 02/24/2022 at 15:02 Transcribed by: JUSTIN on 02/24/2022 at 15:04 Approved by: Mona Negrete M.D. on 02/24/2022 at 15:43
== END ==
PROVIDERS: Family Provider Physician Assistant; PCP Family Medicine; Referring Provider Family Medicine; Visit Provider Family Medicine
DX: E04.1 Nontoxic single thyroid nodule (principal)
CPT/HCPCS: 76536

== ENCOUNTER → 2022-02-25 09:31 | Outpatient (CLI) | payer OTHER, SELFPAY ==
[2022-02-25 10:20] LABS: Add Manual Diff / Slide Review NO; Basophils Absolute Auto 0 /uL (0-100); Basophils Percent Auto 0.7 % (0-2); Eosinophils Absolute Auto 100 /uL (0-450); Eosinophils Percent Auto 1.9 % (2-4); Hematocrit 40.1 % (36-46); Hemoglobin 13.3 g/dL (12.0-16.0); Lymphocytes Absolute Auto 1800 /uL (1100-4500); Lymphocytes Percent Auto 26.1 % (25-40); Mean Corpuscular HGB Conc 33.3 % (30-36); Mean Corpuscular Hemoglobin 29.6 PG (26-34); Mean Corpuscular Volume 89.1 fL (80-100); Monocytes Absolute Auto 600 /uL (0-900); Monocytes Percent Auto 8.9 % (3-14); Neutrophils Absolute Auto 4200 /uL (1500-7000); Neutrophils Percent Auto 62.4 % (50-75); Platelet Count 258 X10^3/uL (150-400); Red Cell Distribution Width 13.4 % (11.6-14.8); White Blood Cell Count 6.7 X10^3/uL (4.5-11.0)
[2022-02-25 10:40] LABS: Alanine Aminotransferase 60 IU/L (<35); Albumin 4.4 g/dL (3.5-5.0); Albumin Globulin Ratio 1.4 (1.0-2.8); Alkaline Phosphatase 94 U/L (38-126); Aspartate Aminotransferase 47 IU/L (14-36); BUN Creatinine Ratio 17.5 (6-22); Bilirubin Total 0.6 mg/dL (0.2-1.3); Blood Urea Nitrogen 14 mg/dL (7-17); Carbon Dioxide 27 mmol/L (22-32); Chloride 107 mmol/L (98-107); Cholesterol 167 mg/dL (140-199); Estimated Glomerular Filt Rate > 60 mL/min (>60); Globulin 3.1 g/dL (1.7-4.1); Glucose 88 mg/dL (80-110); HDL Cholesterol 75 mg/dL (40-60); HEMOLYSIS < 15 (0-50); LDL Cholesterol Calculated 77 mg/dL (<100); Potassium 4.2 mmol/L (3.4-5.1); Sodium 142 mmol/L (137-145); Total Protein 7.5 g/dL (6.3-8.2); Triglycerides 76 mg/dL (35-150)
[2022-02-25 10:57] LABS: Free T3, Triiodothyronine Free 3.61 pg/mL (2.77-5.27); Free T4, Direct Thyroxine 1.25 ng/dL (0.78-2.19)
[2022-02-25 11:10] LABS: Thyroid Stimulating Hormone 2.36 uIU/mL (0.47-4.68)
== END ==
PROVIDERS: Family Provider Physician Assistant; PCP Family Medicine; Referring Provider Family Medicine; Visit Provider Family Medicine
DX: E04.1 Nontoxic single thyroid nodule (principal); E16.2 Hypoglycemia, unspecified; E78.00 Pure hypercholesterolemia, unspecified; R74.8 Abnormal levels of other serum enzymes
CPT/HCPCS: 36415; 80053; 80061; 84439; 84443; 84481; 85025

== ENCOUNTER → 2022-08-31 09:21 | Outpatient (CLI) | payer OTHER, SELFPAY ==
--- NOTE | 2022-08-31 | DI.MG.S_ITS ---
BILATERAL DIGITAL SCREENING MAMMOGRAM 3D/2D WITH CAD: 08/31/2022 CLINICAL: Routine screening. Comparison is made to exams dated: 08/12/2021 mammogram, 08/04/2020 mammogram, and 07/02/2019 mammogram - [facility]. Both breasts are heterogeneously dense, which may obscure small masses (category c / 51-75% glandular tissue). Current study was also evaluated with a Computer Aided Detection (CAD) system. There is a biopsy clip in the right breast. No significant masses, calcifications, or other findings are seen in either breast. There has been no significant interval change. IMPRESSION: NEGATIVE There is no mammographic evidence of malignancy. A 1 year screening mammogram is recommended. Based on the Tyrer Cuzick model (a risk assessment model) the patient's lifetime risk is 12.8% and her 10 year risk is 5.6%. According to the ACR, ACS, and NCCN guidelines, an annual breast MRI exam along with mammogram is recommended if the patient's lifetime risk is 20% or greater. This exam was interpreted at Station ID: [id number]. NOTE: For mammograms, a report in lay terms will be sent to the patient. Approximately 15% of breast malignancies will not be visualized mammographically. In the management of a palpable breast mass, a negative mammogram must not discourage biopsy of a clinically suspicious lesion. Electronically Signed By: Sreedhar Thorne M.D., jr/toi:08/31/2022 12:59:17 letter sent: Normal Exam ACR BI-RADS Category 1: Negative [id number]
== END ==
PROVIDERS: Family Provider Physician Assistant; PCP Family Medicine; Referring Provider Family Medicine; Visit Provider Family Medicine
DX: Z12.31 Encounter for screening mammogram for malignant neoplasm of breast (principal)
CPT/HCPCS: 77063; 77067

== ENCOUNTER → 2023-02-24 10:14 | Outpatient (CLI) | payer OTHER, SELFPAY ==
--- NOTE | 2023-02-24 10:15 | DI.US.S_ITS ---
PROCEDURE: US THYROID INDICATIONS: SURVEILLANCE TECHNIQUE: Real-time scanning was performed of the thyroid gland, with image documentation. COMPARISON: [facility], [place], US THYROID, 02/24/2022, 14:26. FINDINGS: Right: 3.7 x 1.6 x 1.6 cm Left: 4.8 x 1.5 x 1.3 cm Isthmus: 2.6 mm. Left inferior thyroid nodule again seen measuring 19 x 11 x 13 mm, previously 14 x 10 x 9 mm. It is solid and slightly hypoechoic. Margins are smooth. Suspected macro calcifications. TR 4. IMPRESSION: Slightly enlarged left inferior TR 4 thyroid nodule. Sampling is recommended. ACR TI-RADS definitions and recommendations: TI-RADS 1 (benign): 0 points. FNA not needed. TI-RADS 2 (not suspicious): 2 points. FNA not needed. TI-RADS 3 (mildly suspicious): 3 points. * FNA if 2.5 cm or larger, follow up if 1.5 cm or larger (at 1, 3, and 5 years). TI-RADS 4 (moderately suspicious): 4-6 points. * FNA if 1.5 cm or larger, follow up if 1 cm or larger (at 1, 2, 3, and 5 years). TI-RADS 5 (highly suspicious): 7 points or more. * FNA if 1 cm or larger, follow up if 0.5 cm or larger (every year for 5 years). Dictated by: Anthony Rivera M.D. on 02/24/2023 at 12:21 Approved by: Anthony Rivera M.D. on 02/24/2023 at 12:24
== END ==
PROVIDERS: Family Provider Physician Assistant; PCP Family Medicine; Referring Provider Family Medicine; Visit Provider Family Medicine
DX: E04.1 Nontoxic single thyroid nodule (principal)
CPT/HCPCS: 76536

== ENCOUNTER → 2023-03-02 08:27 | Outpatient (CLI) | payer OTHER, SELFPAY | PROVIDERS: Family Provider Physician Assistant; PCP Family Medicine; Visit Provider Physician Assistant | DX: R30.0 Dysuria (principal) | CPT/HCPCS: 87077; 87086; 87186 ==

== ENCOUNTER → 2023-03-15 07:43 | Outpatient (CLI) | payer OTHER, SELFPAY ==
--- NOTE | 2023-03-15 | PATH_ITS ---
Note [facility] Accession Number: [id number] TESTS RESULT FLAG UNITS REF RANGE LAB Clinician Provided Cytology Information No. of containers..01 Other (Miscellaneous) No. of containers..08 Previously Prepared Cytology Slide Source: LEFT INFERIOR THYROID NODULE #1 DIAGNOSIS: LEFT INFERIOR THYROID NODULE #1 INCONCLUSIVE. BETHESDA CATEGORY III. ATYPIA OF UNDETERMINED SIGNIFICANCE. COLLECTION FOR THYROID MOLECULAR STUDIES COULD BE CONSIDERED, IF CLINICALLY INDICATED. Pathologist ICD10: R89.6 Signed out by: Jolly Krishnan MD, Pathologist NPI- [id number] Performed by: Eduardo Reyes, Coding Educator ([facility]) Gross description: 30 CC, RED, CLOUDY RECIEVED: IN CYTOLYT WITH 9 ALCOHOL FIXED AND 9 QUICK STAINED SLIDES ALSO 1 RNA VIAL WAS RECEIVED.VO /VDU 03/16/2023 0738 Local FLAG LEGEND: L-Low Normal,H-High Normal,LL-Alert Low,HH-Alert High <-Panic Low,>-Panic High,A-Abnormal,AA-Critical Abnormal Performed at: 01 =Z [facility] [address], [place] [address] Дмитрий Mars MD, Performed at: 01 [facility] [address], [place], [place] [id number] MD Дмитрий Mars MD Phone: [phone]
--- NOTE | 2023-03-15 07:44 | DI.US.S_ITS ---
PROCEDURE: US FINE NEEDLE ASPIRATION INDICATIONS: LEFT THYROID NODULE #1 ASPIRATION TECHNIQUE: The indications, alternatives, benefits, risks, and complications of the procedure were explained to the patient. Written informed consent was obtained and placed in the chart. The area of interest was examined sonographically and a site was chosen for ultrasound guided percutaneous sampling. The skin was prepared and draped in the usual fashion, and anesthetized with 1% lidocaine infiltrated from the skin down to the lesion. Multiple passes were then performed, with contents emptied into an appropriate pathology specimen container. A bandage was applied to the area of access at completion of the study. COMPARISON: [facility], US FINE NEEDLE ASPIRATION, 02/11/2021, 13:10. FINDINGS: Location(s) of lesion(s) sampled: Left inferior [place]: 25 and 22 gauge hypodermic needles. Number of passes: 6 passes with 25 gauge needle and 3 passes with 22 gauge Medications: 1% lidocaine for local anaesthesia. Complications: None. IMPRESSION: Successful ultrasound-guided thyroid nodule fine needle aspiration, with cytology results pending. Dictated by: Hema Yates M.D. on 03/15/2023 at 11:07 Approved by: Hema Yates M.D. on 03/15/2023 at 11:09
== END ==
PROVIDERS: PCP Family Medicine; Referring Provider Family Medicine; Visit Provider Family Medicine
DX: E04.1 Nontoxic single thyroid nodule (principal)
CPT/HCPCS: 10005

== ENCOUNTER → 2023-04-12 08:07 | Outpatient (CLI) | payer OTHER, SELFPAY ==
--- NOTE | 2023-04-12 | PATH_ITS ---
Note [facility] Accession Number: [id number] TESTS RESULT FLAG UNITS REF RANGE LAB Clinician Provided Cytology Information No. of containers..01 Other (Miscellaneous) No. of containers..06 Previously Prepared Cytology Slide Source: INFERIOR LEFT THYROI DIAGNOSIS: INFERIOR LEFT THYROI NEGATIVE FOR MALIGNANT CELLS. B[place]ES[place] CATEGORY II. SPECIMEN CONSISTS OF BENIGN FOLLICULAR CELLS, HEMOSIDERIN-LADEN MACROPHAGES, AND COLLOID. THIS PATTERN IS CONSISTENT WITH A COLLOID NODULE. COMMENT: This case is also reviewed by Dr. Debra Irwin who concurs with the given interpretation. Pathologist ICD10: 01 E04.1 Signed out by: Inna Chambers MD, Pathologist NPI- [id number] Performed by: Eduardo Reyes, Shearer Helper ([facility]) Gross description: 30 CC, RED, CLEAR RECIEVED: IN CYTOLYT WITH 8 ALCOHOL FIXED AND 8 QUICK STAINED SLIDES ALSO 1 RNA VIAL WAS RECEIVED.VO /VDU 04/13/2023 075 Local FLAG LEGEND: L-Low Normal,H-High Normal,LL-Alert Low,HH-Alert High <-Panic Low,>-Panic High,A-Abnormal,AA-Critical Abnormal Performed at: 01 =Z [facility] [address] [place] [address] [address], [place] [address] Дмитрий Mars MD, Performed at: 01 [facility] [address] [place] [address] [address], [place], [place] [id number] MD Дмитрий Mars MD Phone: [phone]
--- NOTE | 2023-04-12 08:08 | DI.US.S_ITS ---
PROCEDURE: US FINE NEEDLE ASPIRATION INDICATIONS: THIRD ATTEMPT LEFT INFERIOR NODULE TECHNIQUE: The indications, alternatives, benefits, risks, and complications of the procedure were explained to the patient. Written informed consent was obtained and placed in the chart. The thyroid region was examined sonographically and a site was chosen for ultrasound guided percutaneous sampling. The skin was prepared and draped in the usual fashion, and anesthetized with 1% lidocaine infiltrated from the skin down to the thyroid gland. Multiple passes were then performed, with contents emptied into an appropriate pathology specimen container. A bandage was applied to the area of access at completion of the study. COMPARISON: [facility], [place], US FINE NEEDLE ASPIRATION, 03/15/2023, 8:17. FINDINGS: Location(s) of lesion(s) sampled: Left lobe inferior [place]: 25 gauge hypodermic needles. Number of passes: 10 Medications: 1% lidocaine for local anaesthesia. Complications: None. IMPRESSION: Successful ultrasound-guided thyroid nodule fine needle aspiration, with cytology results pending. Please see chart below for management recommendations based on cytology results. [place] [facility] ReportingRecommendationsNon-diagnostic* Repeat US-guided FNA, with on-site cytology evaluation if possible. * Repeated non-diagnostic nodules without high suspicion US features: close observation vs surgical consult. * Consider surgery if nodule has high suspicion US features, grows >20% in 2 dimensions on followup, or patient has clinical risk factors for malignancy. Benign* If nodule has high suspicion US features: repeat US and FNA within 12 months. * If nodule has low to intermediate suspicion US features: repeat US at 12-24 months. If nodule grows (20% increase in at least 2 dimensions, with minimal increase of 2 mm or >50% change in volume), or development of new suspicious US features, then repeat FNA or continue followup. * If nodule has very low suspicion US features: followup US at >24 months. Atypia of undetermined significance, follicular lesion of undetermined significanceRepeat FNA, molecular testing, followup US, or surgical consult.Follicular neoplasm, suspicious for follicular neoplasmSurgical consult; also consider molecular testing. Suspicious for malignancySurgical consult.MalignantSurgical consult. Dictated by: Boris Redding M.D. on 04/12/2023 at 11:13 Approved by: Boris Redding M.D. on 04/12/2023 at 11:15
== END ==
PROVIDERS: PCP Family Medicine; Referring Provider Family Medicine; Visit Provider Family Medicine
DX: E04.1 Nontoxic single thyroid nodule (principal)
CPT/HCPCS: 10005

== ENCOUNTER → 2023-09-01 08:29 | Outpatient (CLI) | payer OTHER, SELFPAY ==
--- NOTE | 2023-09-01 08:30 | DI.MG.S_ITS ---
BILATERAL DIGITAL SCREENING MAMMOGRAM 3D/2D WITH CAD: 09/01/2023 CLINICAL: Routine screening. Comparison is made to exams dated: 08/31/2022 mammogram and 08/04/2020 mammogram - [facility]. Both breasts are heterogeneously dense, which may obscure small masses (category c / 51-75% glandular tissue). Current study was also evaluated with a Computer Aided Detection (CAD) system. There is a biopsy clip in the right breast. No significant masses, calcifications, or other findings are seen in either breast. There has been no significant interval change. IMPRESSION: BENIGN There is no mammographic evidence of malignancy. A 1 year screening mammogram is recommended. Based on the Tyrer Cuzick model (a risk assessment model) the patient's lifetime risk is 12.4% and her 10 year risk is 5.6%. According to the ACR, ACS, and NCCN guidelines, an annual breast MRI exam along with mammogram is recommended if the patient's lifetime risk is 20% or greater. This exam was interpreted at Station ID: [id number]. NOTE: For mammograms, a report in lay terms will be sent to the patient. Approximately 15% of breast malignancies will not be visualized mammographically. In the management of a palpable breast mass, a negative mammogram must not discourage biopsy of a clinically suspicious lesion. Electronically Signed By: Anthony cohen/toi:09/01/2023 14:29:10 letter sent: Normal Exam ACR BI-RADS Category 2: Benign Finding(s) 3342F
== END ==
PROVIDERS: PCP Family Medicine; Referring Provider Family Medicine; Visit Provider Family Medicine
DX: Z12.31 Encounter for screening mammogram for malignant neoplasm of breast (principal)
CPT/HCPCS: 77063; 77067

== ENCOUNTER 2023-10-10 07:09 | Emergency (ER) | payer OTHER, SELFPAY ==
[2023-10-10 07:20] VITALS: BP 125/78; PULSE 116; RESP 20; TEMP 37.4; O2SAT 97; BMI 31.6
--- NOTE | 2023-10-10 07:47 | ED.SOB ---
HPI - SOB/Dyspnea General Chief Complaint: Shortness of Breath/Dyspnea Stated Complaint: TROUBLE BREATHING Time Seen by Provider: 10/10/23 07:47 Source: patient Mode of arrival: Ambulatory Limitations: no limitations History of Present Illness HPI Narrative: 63-year-old female with history of asthma and prior lobectomy for carcinoid tumor. Patient presents today with recent upper respiratory symptoms with nasal congestion, ear pain cough and increasing shortness of breath. Patient states like her asthma feels like it is kicking off. Her cough has been bad enough that it is hard for her to take a deep breath to use her albuterol inhaler or her Advair. Patient states that she has not had any fevers but had some chills. She states cough is nonproductive. She notes she has been a little bit hoarse. States she is little bit of pain when she coughs. Feel short of breath secondary to her cough and asthma. She did try using her albuterol but states she was coughing too hard to use it. No nausea or vomiting reported, no diarrhea constipation. No swelling of her extremities. Patient states she uses Advair daily, albuterol PRN, statin and takes a antihistamine daily. Patient states she had a prior lobe resection for carcinoid tumor several years ago. She does follow regularly for surveillance has not had any recurrence. No tobacco, no regular alcohol, no recreational drugs. 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 Related Data Home Medications Medication Instructions Recorded Confirmed Glucosamine/Chondroitin 1 cap PO DAILY 02/27/19 03/02/23 multivitamin 1 tab PO DAILY 02/27/19 03/02/23 Calcium/Vitamin D3 2 tab PO DAILY 03/20/19 03/02/23 Previous Rx's Medication Instructions Recorded albuterol sulfate 90 mcg/actuation 1 - 2 puff inhalation Q4-6H PRN 04/09/20 aerosol inhaler (ProAir HFA) asthma and shortness of breath #8 grams cyclobenzaprine 5 mg tablet 5 mg PO BEDTIME PRN muscle spasm 10/12/21 #90 tabs atorvastatin 40 mg tablet (Lipitor) 40 mg PO BEDTIME #90 tabs 04/13/23 fluticasone 250 mcg-salmeterol 50 1 inh inhalation BID #180 ea 06/19/23 mcg/dose blistr powdr for inhalation (Advair Diskus) montelukast 10 mg tablet 10 mg PO QPM asthma #90 tabs 06/19/23 albuterol sulfate 2.5 mg/3 mL 2.5 mg (3 mL) inhalation Q4-6H PRN 10/10/23 (0.083 %) solution for nebulization shortness of breath or wheezing #75 mL azithromycin 250 mg tablet See Rx Instructions PO .COMPLEX #6 10/10/23 tabs nebulizer accessories #1 ea 10/10/23 nebulizer and compressor #1 ea 10/10/23 prednisone 10 mg tablets in a dose See Rx Instructions PO .COMPLEX 10/10/23 pack #21 ea Allergies Allergy/AdvReac Type Severity Reaction Status Date / Time amoxicillin Allergy Mild Rash and Verified 03/02/23 08:33 hives Review of Systems Review of Systems ROS Unobtainable: All systems reviewed & are unremarkable except as noted in HPI and below Patient History Medical History Age-related nuclear cataract, bilateral Upper extremity somatic dysfunction Lateral epicondylitis, right elbow Dysfunction of right eustachian tube FHx: genetic disorder Seborrheic keratoses, inflamed Cervical radiculopathy Stiff neck 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) Lung mass (01/2021) Thyroid nodule (01/2021) Low blood sugar (11/2020) Liver enzyme elevation Actinic keratosis Vision disorder Skin problem (~2013) Asthma (~2000) Seasonal allergies (~2014) Chicken pox (~1967) Abnormal Pap smear of cervix (~1989) History of urinary incontinence (~1995) Surgical History Anesthesia History of colonoscopy (~2009) S/P LEEP (~1997) History of section (~1990) Family History Father History of heart disease Mother Diabetes mellitus Sister Arthritis Sister Rheumatoid arthritis Grandfather History of heart disease Social History Smoking Status: Never smoker second hand exposure: Yes (I was until 2 years ago (as of 02/27/19).) alcohol intake: current substance use type: does not use Smoking Status: Never smoker alcohol intake frequency: 0-2 drinks per day Substance Use Type: does not use Exam Narrative Exam Narrative: GEN: well nourished, well appearing female, alert and oriented x 3, patient appears to be in mild distress. HEENT: Atraumatic, pupils are equal round reactive to light, extraocular movements are intact, positive for nasal congestion bilaterally, TMs intact, slightly retracted with fluid, no erythema, no bulge, there is no conjunctival pallor. Throat is clear without any exudates, erythema, tonsillar enlargement or uvular deviation HEART: Regular rate and rhythm without murmur, clicks, rubs. LUNGS:Lungs have breath sounds bilaterally, wheezes appreciable, no rales, no crackles but patient does have some rhonchi bilaterally, chest moves symmetrically. No tachypnea accessory muscle use. Patient has dry cough with deep inhalation. ABD:bowel sounds normal, soft, non-tender, no guarding, rebound, rigidity, no masses noted, no hepatosplenomegaly MSCL: Non-tender, no muscle atrophy, muscles strength 5/5 upper and lower extremities, full range of motion, normal gait NEURO:CN 2-12 intact, sensation normal Initial Vital Signs Initial Vital Signs: Vital Signs Temperature 99.3 F 10/10/23 07:20 Pulse Rate 116 H 10/10/23 07:20 Respiratory Rate 20 10/10/23 07:20 Blood Pressure 125/78 10/10/23 07:20 Pulse Oximetry 97 10/10/23 07:20 Oxygen Delivery Method Room Air 10/10/23 07:20 Course Orders Ordered: ED Orders 10/10/23 08:00 Chest [XR chest 2V] Stat Discontinued Medications Albuterol/Ipratropium (Albuterol/Ipratropium 3 Ml Ampul) 3 ml INH NOW ONE Stop: 10/10/23 08:01 Last Admin: 10/10/23 08:14 Dose: 3 ml Documented By: PRAVEEN Prednisone (Prednisone 20 Mg Tablet) 60 mg PO NOW ONE Stop: 10/10/23 08:01 Last Admin: 10/10/23 09:05 Dose: 60 mg Documented By: MICHEL Vital Signs Vital signs: Vital Signs - 8 hr 10/10/23 07:20 10/10/23 09:05 Temperature 99.3 F Pulse Rate 116 H 105 H Respiratory Rate 20 16 Blood Pressure 125/78 140/66 Pulse Oximetry 97 95 Oxygen Delivery Method Room Air Room Air MDM - SOB/Dyspnea Imaging Data Chest x-ray: Radiologist's Impression: [address] [address] XRay Report Signed Patient: Laura Bartholomew MR#: [id number] : 1960 Acct:[id number] Age/Sex: 63 / F Date of Service: 10/10/23 Loc: ED Accession Number: [id number] Procedure: XR chest 2V Ordering Provider: Ella Guardado D.O. PROCEDURE: XR CHEST 2V INDICATIONS: cough, rhonchi, recent URI, asthma hx TECHNIQUE: 2 views of the chest were acquired. COMPARISON: [facility], CR, XR CHEST 1V, 12/27/2020, 9:18. [facility], CT, CT CHEST WITHOUT CONTRAST, 07/14/2023, 9:39. FINDINGS: Surgical changes and devices: Right lung postsurgical changes. Lungs and pleura: Low lung volumes. No dense consolidation seen on frontal view, however there is lower lobe consolidation or atelectasis seen on lateral view. Mediastinum: Normal heart size Bones and chest wall: Unremarkable IMPRESSION: Lateral view lower lobe opacity could represent airspace disease or atelectasis. Consider future imaging surveillance to assess for resolution. Dictated by: Anthony Rivera M.D. on 10/10/2023 at 8:22 Approved by: Anthony Rivera M.D. on 10/10/2023 at 8:27 [facility] Narrative Medical decision making narrative: 63-year-old female with history of asthma and carcinoid tumor with resection in the past. Patient presents with complaint of recent upper respiratory infection her exam is very consistent with this with increased shortness of breath likely asthma exacerbation. Patient denies fevers. Can only with cough. Has been nonproductive. Patient has had trouble using her albuterol inhaler because she coughs so hard when she takes a deep breath. We will give 1 neb patient has more rhonchi and wheeze on examination, oral steroid and chest x-ray. Discussed respiratory panel but patient defers. Chest x-ray on lateral view shows a little bit of atelectasis versus opacification. They do note surgical changes. Discussed with patient seems much more likely to be asthma exacerbation for URI but we will give a script for antibiotic if she has not improving after the next several days she is only 5 days into symptoms. She does have more rhonchi then wheeze. Patient does feel somewhat improved she is clear on repeat examination after nebulizer. Patient is unsure if she would like nebulizer and albuterol, we will give printed prescriptions for this that patient can fill as needed and other scripts were sent E scribed. Discussed return precautions all questions answered patient feels comfortable returning home. Discharge Plan Departure Patient Disposition: Home Clinical Impression: Upper respiratory infection, Asthma with exacerbation Activity Restrictions/Additional Instructions: Follow up as needed. Continue your albuterol every 4 hours as needed. Take prednisone once daily until gone. I would recommend taking this medication with food. If your symptoms are not improving over the next several days there is a prescription for antibiotic. Prescription sent to [facility] pharmacy in [place]. Also included as a printed prescription for nebulizer and albuterol if you find that they are more helpful than your inhaler. Please return for increasing shortness of breath, new chest pain, lightheadedness or passing out, nausea or vomiting, new swelling of your extremities or other new or concerning changes. Prescriptions: New prednisone 10 mg tablets,dose pack See Rx Instructions .ROUTE .COMPLEX Qty: 21 0RF Rx Instructions: Take 6 tablets p.o. x1 day, then 5 tablets p.o. x1 day, then 4 tablets p.o. x1 day, then 3 tablets p.o. x1 day, then 2 tablets p.o. x1 day, then 1 tablet p.o. x1 day azithromycin 250 mg tablet See Rx Instructions .ROUTE .COMPLEX Qty: 6 0RF Rx Instructions: For 250 mg dose pack: take 500 mg today (day 1), then 250 mg for 4 days (days 2-5) (DME) nebulizer and compressor Device See Rx Instructions .Route Qty: 1 0RF Rx Instructions: As directed (DME) nebulizer accessories Kit See Rx Instructions .Route Qty: 1 0RF Rx Instructions: As directed albuterol sulfate 2.5 mg /3 mL (0.083 %) solution for nebulization 2.5 mg inhalation Q4-6H PRN (Reason: shortness of breath or wheezing) Qty: 75 0RF No Action atorvastatin [Lipitor] 40 mg tablet 40 mg PO BEDTIME Qty: 90 2RF montelukast 10 mg tablet 10 mg PO QPM Qty: 90 3RF fluticasone propion-salmeterol [Advair Diskus] 250-50 mcg/dose blister with device 1 inh INHALATION BID Qty: 180 2RF multivitamin tablet 1 tab PO DAILY Glucosamine/Chondroitin 1 cap PO DAILY Calcium/Vitamin D3 2 tab PO DAILY cyclobenzaprine 5 mg tablet 5 mg PO BEDTIME PRN (Reason: muscle spasm) Qty: 90 0RF albuterol sulfate [ProAir HFA] 90 mcg/actuation HFA aerosol inhaler 1 - 2 puff INHALATION Q4-6H PRN (Reason: asthma and shortness of breath) Qty: 8 5RF Rx Instructions: 1-2 puffs every 4-6 hours as needed for shortness of breath Referrals: Ever Escalera DO [Primary Care Provider] - Stand Alone Forms: Patient Portal/API
--- NOTE | 2023-10-10 08:00 | DI.RAD.S_ITS ---
PROCEDURE: XR CHEST 2V INDICATIONS: cough, rhonchi, recent URI, asthma hx TECHNIQUE: 2 views of the chest were acquired. COMPARISON: [facility], CR, XR CHEST 1V, 12/27/2020, 9:18. [facility], CT, CT CHEST WITHOUT CONTRAST, 07/14/2023, 9:39. FINDINGS: Surgical changes and devices: Right lung postsurgical changes. Lungs and pleura: Low lung volumes. No dense consolidation seen on frontal view, however there is lower lobe consolidation or atelectasis seen on lateral view. Mediastinum: Normal heart size Bones and chest wall: Unremarkable IMPRESSION: Lateral view lower lobe opacity could represent airspace disease or atelectasis. Consider future imaging surveillance to assess for resolution. Dictated by: Anthony Rivera M.D. on 10/10/2023 at 8:22 Approved by: Anthony Rivera M.D. on 10/10/2023 at 8:27
[2023-10-10] MEDS: ALBUTEROL/IPRATROPIUM 3 ML AMPUL INH (08:14)
[2023-10-10 09:05] VITALS: BP 140/66; PULSE 105; RESP 16; O2SAT 95
[2023-10-10] MEDS: predniSONE 20 MG TABLET 60 MG PO (09:05)
== END 2023-10-10 09:10 | disposition home or self-care (01) ==
PROVIDERS: Emergency Provider Emergency Medicine; PCP Family Medicine
DX: J06.9 Acute upper respiratory infection, unspecified (principal); J45.901 Unspecified asthma with (acute) exacerbation
CPT/HCPCS: 71046; 94640; 99283

== ENCOUNTER → 2024-02-17 08:56 | Outpatient (CLI) | payer OTHER, SELFPAY ==
[2024-02-17 10:10] LABS: Add Manual Diff / Slide Review NO; Basophils Absolute Auto 100 /uL (0-100); Eosinophils Absolute Auto 200 /uL (0-450); Eosinophils Percent Auto 3.3 % (2-4); Hemoglobin 13.2 g/dL (12.0-16.0); Lymphocytes Absolute Auto 1600 /uL (1100-4500); Lymphocytes Percent Auto 24.3 % (25-40); Mean Corpuscular HGB Conc 33.8 % (30-36); Mean Corpuscular Volume 88.9 fL (80-100); Monocytes Absolute Auto 600 /uL (0-900); Monocytes Percent Auto 9.1 % (3-14); Neutrophils Absolute Auto 4100 /uL (1500-7000); Neutrophils Percent Auto 62.3 % (50-75); Platelet Count 258 X10^3/uL (150-400); Red Blood Cell Count 4.39 X10^6/uL (4.0-5.2); Red Cell Distribution Width 13.3 % (11.6-14.8); White Blood Cell Count 6.6 X10^3/uL (4.5-11.0)
[2024-02-17 10:39] LABS: Alanine Aminotransferase 40 IU/L (<35); Albumin 4.1 g/dL (3.5-5.0); Albumin Globulin Ratio 1.3 (1.0-2.8); Alkaline Phosphatase 102 U/L (38-126); Aspartate Aminotransferase 32 IU/L (14-36); BUN Creatinine Ratio 15.6 (6-22); Bilirubin Total 0.6 mg/dL (0.2-1.3); Blood Urea Nitrogen 14 mg/dL (7-17); Calcium 8.9 mg/dL (8.4-10.2); Carbon Dioxide 28 mmol/L (22-32); Chloride 108 mmol/L (98-107); Cholesterol 172 mg/dL (140-199); Estimated Glomerular Filt Rate > 60 mL/min (>60); Globulin 3.1 g/dL (1.7-4.1); Glucose 92 mg/dL (80-110); HDL Cholesterol 69 mg/dL (40-60); HEMOLYSIS < 15 (0-50); LDL Cholesterol Calculated 81 mg/dL (<100); Potassium 4.3 mmol/L (3.4-5.1); Sodium 141 mmol/L (137-145); Total Protein 7.2 g/dL (6.3-8.2); Triglycerides 112 mg/dL (35-150)
[2024-02-17 11:09] LABS: TSH w/ Reflex to FT4 1.57 uIU/mL (0.47-4.68)
== END ==
PROVIDERS: PCP Family Medicine; Referring Provider Family Medicine; Visit Provider Family Medicine
DX: E04.1 Nontoxic single thyroid nodule (principal); R74.8 Abnormal levels of other serum enzymes; E78.00 Pure hypercholesterolemia, unspecified; E16.2 Hypoglycemia, unspecified
CPT/HCPCS: 36415; 80053; 80061; 84443; 85025

== ENCOUNTER → 2024-03-11 15:48 | Outpatient (CLI) | payer OTHER, SELFPAY ==
--- NOTE | 2024-03-11 15:48 | DI.US.S_ITS ---
PROCEDURE: US THYROID INDICATIONS: nodule monitoring TECHNIQUE: Real-time scanning was performed of the thyroid gland, with image documentation. COMPARISON: [facility], US, US THYROID, 02/24/2022, 14:26. [facility], US, US THYROID, 01/14/2021, 15:14. US, US FINE NEEDLE ASPIRATION, 04/12/2023, 8:22. US, US FINE NEEDLE ASPIRATION, 03/15/2023, 8:17. [facility], US, US THYROID, 02/24/2023, 10:28. FINDINGS: Thyroid: Right lobe measures 3.8 x 1.1 x 1.9 cm. Left lobe measures 4.3 x 1.9 x 1.4 cm. Isthmus is 0.4 cm thick. Echotexture is homogeneous. Nodule number: 1 Location: Left inferior Size: 1.3 x 1.1 x 1.2 cm compared to 1.9 x 1.1 x 1.3 cm. Composition: Solid Echogenicity: Hypoechoic Shape: wider than tall. Margins: Smooth Echogenic foci: None Total points: 4 ACR TI-RADS category: 4 IMPRESSION: Decreased size of previous category 4 lesion. It is noted previous FNA was performed on 04/12/2023. If this was benign and continued interval decrease in size, clinical discretion as to continued annual imaging follow-up. ACR TI-RADS definitions and recommendations: TI-RADS 1 (benign): 0 points. FNA not needed. TI-RADS 2 (not suspicious): 2 points. FNA not needed. TI-RADS 3 (mildly suspicious): 3 points. * FNA if 2.5 cm or larger, follow up if 1.5 cm or larger (at 1, 3, and 5 years). TI-RADS 4 (moderately suspicious): 4-6 points. * FNA if 1.5 cm or larger, follow up if 1 cm or larger (at 1, 2, 3, and 5 years). TI-RADS 5 (highly suspicious): 7 points or more. * FNA if 1 cm or larger, follow up if 0.5 cm or larger (every year for 5 years). Dictated by: Marley Pinto M.D. on 03/11/2024 at 17:44 Approved by: Marley Pinto M.D. on 03/11/2024 at 17:46
== END ==
PROVIDERS: PCP Family Medicine; Referring Provider Family Medicine; Visit Provider Family Medicine
DX: E04.1 Nontoxic single thyroid nodule (principal)
CPT/HCPCS: 76536

== ENCOUNTER 2024-04-26 06:45 | Observation (INO) | payer OTHER, SELFPAY ==
[2024-04-26] VITALS (20 sets, daily range): BP systolic 102–144; BP diastolic 51–84; PULSE 72–105; RESP 13–28; TEMP 36.1–36.9; O2SAT 91–97; BMI 32.5
--- NOTE | 2024-04-26 | DI.RAD.S_ITS ---
PROCEDURE: XR CHEST 1V INDICATIONS: possible aspiration TECHNIQUE: One view of the chest was acquired. COMPARISON: [facility], CT, CT CHEST WITHOUT CONTRAST, 07/14/2023, 9:39. [facility], CR, XR CHEST 2V, 10/10/2023, 8:06. [facility], CR, XR CHEST 1V, 12/27/2020, 9:18. FINDINGS: Surgical changes and devices: None. Lungs and pleura: Left upper lobe opacity which is new. No pleural effusions or pneumothorax. Mediastinum: Mediastinal contours appear unchanged. Heart size is prominent. Bones and chest wall: No suspicious bony lesions. Overlying soft tissues appear unremarkable. IMPRESSION: New left upper lobe opacity. This could represent aspiration, pneumonia or likely atelectasis. Dictated by: Catracho Velazco M.D. on 04/26/2024 at 9:24 Approved by: Catracho Velazco M.D. on 04/26/2024 at 9:26
--- NOTE | 2024-04-26 | PATH_ITS ---
[facility] Accession Number: [id number] No. of containers..01 Tissue . 01 Material submitted: . colon - TRANSVERSE COLON POLYP . 01 Diagnosis: TRANSVERSE COLON POLYP: Colonic mucosa with focal mucosal hyperplasia. No neoplasm identified. . Specimen Comments: This could represent the early development of a hyperplastic polyp. No dysplasia is seen. [facility] 05/01/20241808 Local . 01 Electronically signed: . Дмитрий Mars MD, Pathologist NPI- [id number] . 01 Gross description: . Received in formalin with two patient identifiers and transverse colon polyp, is a single ramirez soft tissue fragment, 0.5 cm in greatest dimension. Submitted in A1. ([id number]) /MRV 05/01/20241808 Local . 01 Pathologist provided ICD-10: K63.5 . 01 CPT . 493945 Specimen Comment: A courtesy copy of this report has been sent to [phone] Performed at: [address] [facility] [address], [place], [place] [id number] MD Дмитрий Mars MD Phone: [phone]
[2024-04-26] MEDS: LACTATED RINGERS 1,000 ML 42 ML IV (07:12)
--- NOTE | 2024-04-26 07:50 | PM.HP.1 ---
History of Present Illness History of Present Illness Date Patient Seen: 04/26/24 Time Patient Seen: 07:51 Chief complaint: Screening Colonoscopy Narrative: Second colonoscopy, no symptoms and no family history for colon cancer [facility] Medical History Age-related nuclear cataract, bilateral Upper extremity somatic dysfunction Lateral epicondylitis, right elbow Dysfunction of right eustachian tube FHx: genetic disorder Seborrheic keratoses, inflamed Cervical radiculopathy Stiff neck 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) Lung mass (01/2021) Thyroid nodule (01/2021) Low blood sugar (11/2020) Liver enzyme elevation Actinic keratosis Vision disorder Skin problem (~2013) Asthma (~2000) Seasonal allergies (~2014) Chicken pox (~1967) Abnormal Pap smear of cervix (~1989) History of urinary incontinence (~1995) Surgical History Anesthesia History of colonoscopy (~2009) S/P LEEP (~1997) History of section (~1990) Family History Father History of heart disease Mother Diabetes mellitus Sister Arthritis Sister Rheumatoid arthritis Grandfather History of heart disease Social History Smoking Status: Never smoker second hand exposure: Yes (I was until 2 years ago (as of 02/27/19).) alcohol intake: current substance use type: does not use Meds Home Medications and Allergies Home Medications Medication Instructions Recorded Confirmed Type multivitamin 1 tab PO DAILY 02/27/19 04/26/24 History Calcium/Vitamin D3 2 tab PO DAILY 03/20/19 04/26/24 History atorvastatin 40 mg tablet (Lipitor) 40 mg PO BEDTIME #90 tabs 03/08/24 04/26/24 Rx fluticasone 250 mcg-salmeterol 50 1 inh inhalation BID #180 ea 03/08/24 04/26/24 Rx mcg/dose blistr powdr for inhalation (Advair Diskus) montelukast 10 mg tablet 10 mg PO QPM asthma #90 tabs 03/08/24 04/26/24 Rx estradiol 0.01% (0.1 mg/gram) 1 g vaginal DAILY #42.5 grams 04/02/24 04/26/24 Rx vaginal cream (Estrace) Allergies Allergy/AdvReac Type Severity Reaction Status Date / Time amoxicillin Allergy Mild Rash and Verified 04/02/24 14:05 hives Review of Systems Review of Systems ROS: Yes All systems reviewed with the patient and are negative except as otherwise documented Exam Vital Signs (past 8 hours): - 04/26/24 06:58 Temperature 98.5 F Pulse Rate 101 H Respiratory Rate 14 Blood Pressure 144/84 H Pulse Oximetry 95 Oxygen Delivery Method Room Air Oxygen Delivery Method Room Air Const General: cooperative, healthy appearing and comfortable Nutritional Appearance: overweight HENMT Head: normocephalic and atraumatic Ears: hearing grossly normal bilaterally Eyes General: appearance normal, both eyes and all related structures Neck Neck: trachea midline Chest Chest: normal inspection of the chest Resp Effort & Inspection: normal respiratory effort and able to speak in complete sentences Cardio Rate: regular rate Rhythm: regular rhythm GI Palpation: soft and No tender Skin General: no rashes or lesions noted Neuro General: patient alert, patient awake and patient oriented x3 Cognition: normal cognition Psych Appearance: grossly normal Mental Status: mental status grossly normal Affect: normal affect Judgment: judgment good Assessment & Plan Assessment & Plan narrative: Colon cancer screening with colonoscopy Time-Based Coding :: [TOTAL MINUTES] spent with patient and on the chart (including review of chart, obtaining history, exam, reviewing outside data, placing orders, documenting exam and treatment plan, and counseling patient) on [DATE].
--- NOTE | 2024-04-26 08:12 | PM.OP.COLON ---
Operative Date/Time/Diagnoses Date of procedure: 04/26/24 Time of procedure: 08:12 Pre-op diagnosis: Colon cancer screening Post-op diagnosis: same Procedure & Clinicians Study performed: Colonoscopy with cold forceps polypectomy Same procedure as scheduled: Yes Indications: Colon cancer screening Surgeon: Inna Isaacs Procedure Notes Procedure in detail: Preop diagnosis: Colon cancer screening Postop diagnosis: Same Operative procedure: Colonoscopy with cold forceps polypectomy Surgeon: Chen Isaacs MD Findings: Single polyp in the transverse colon approximately 2 mm in size taken with cold forceps, no diverticulosis Procedure: Patient placed in lateral position. Rectal exam performed showing normal tone no masses. Colonoscope inserted into the rectum and advanced to ileocecal valve with minimal difficulty. Insufflation extraction scope and the above findings. Retroflex was included in the rectum. Impression: No diverticulosis. One polyp in the transverse colon taken with cold forceps. Gross appearance is adenomatous. Plan repeat colonoscopy in 5 years unless otherwise indicated by change in clinical condition Findings: polyp(s) Specimen(s): other (Transverse colon polyp 2 mm) Complications: none Post-procedure Recommendations: Colonoscopy in 5 years Follow up: as needed Disposition: PACU
[2024-04-26] MEDS: ALBUTEROL/IPRATROPIUM 3 ML AMPUL INH (08:50)
[2024-04-26] MEDS: DEXTROSE 5%-0.45% NS 1,000 ML 100 ML IV (10:31)
[2024-04-26] MEDS: ONDANSETRON 4 MG/2 ML INJ IV (10:32)
--- NOTE | 2024-04-26 10:54 | SUR.PHASEII ---
Patient dressed independently but reported difficulty breathing, appeared mildly uncomfortable. O2 sat 91%RA. Dr. Isaacs notified and chest x-ray ordered. X-ray done and was shown to MD by Gera thomas . At 0930 2L NC applied for 91% sat and continued dyspnea. court recording monitor placed. Spouse was notified of potential admit and he came to the bedside. New IV started. Patient denied pain. 1030 Dr. Weinstein evaluated patient, patient reported nausea and was medicated per Dr. Weinstein VVO.
--- NOTE | 2024-04-26 12:20 | PM.HP.1 ---
History of Present Illness History of Present Illness Date Patient Seen: 04/26/24 Time Patient Seen: 10:10 Date of Onset of Symptoms: 04/26/24 Chief complaint: Screening Colonoscopy/aspiration Narrative: 63-year-old woman under the primary care of Dr. Hussein Escalera presented today for an elective screening colonoscopy and while sedated following the colonoscopy experienced emesis of clear gastric contents, with transient hypoxemia. Oxygen was placed and she was transferred to the recovery room. She is seen in the PACU with her at bedside. She reports shortness of breath and experiencing intermittent coughing. She has a history of asthma that she states has been well controlled recently. She has a history of lung cancer status post lobectomy without known recurrence. She is admitted to the medical floor for observation given ongoing respiratory distress following this event. She states her last meal was the night before last, and she has been on a liquid diet. She denies taking any GLP-1 agonist. 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) Lung mass (01/2021) Thyroid nodule (01/2021) Low blood sugar (11/2020) Liver enzyme elevation Actinic keratosis Vision disorder Skin problem (~2013) Asthma (~2000) Seasonal allergies (~2014) Chicken pox (~1967) Abnormal Pap smear of cervix (~1989) History of urinary incontinence (~1995) Surgical History Anesthesia History of colonoscopy (~2009) S/P LEEP (~1997) History of section (~1990) Family History Father History of heart disease Mother Diabetes mellitus Sister Arthritis Sister Rheumatoid arthritis Grandfather History of heart disease Social History Smoking Status: Never smoker second hand exposure: Yes (I was until 2 years ago (as of 02/27/19).) alcohol intake: current substance use type: does not use Meds Home Medications and Allergies Home Medications Medication Instructions Recorded Confirmed Type multivitamin 1 tab PO DAILY 02/27/19 04/26/24 History Calcium/Vitamin D3 2 tab PO DAILY 03/20/19 04/26/24 History atorvastatin 40 mg tablet (Lipitor) 40 mg PO BEDTIME #90 tabs 03/08/24 04/26/24 Rx fluticasone 250 mcg-salmeterol 50 1 inh inhalation BID #180 ea 03/08/24 04/26/24 Rx mcg/dose blistr powdr for inhalation (Advair Diskus) montelukast 10 mg tablet 10 mg PO QPM asthma #90 tabs 03/08/24 04/26/24 Rx estradiol 0.01% (0.1 mg/gram) 1 g vaginal DAILY #42.5 grams 04/02/24 04/26/24 Rx vaginal cream (Estrace) Allergies Allergy/AdvReac Type Severity Reaction Status Date / Time amoxicillin Allergy Mild Rash and Verified 04/02/24 14:05 hives Review of Systems Review of Systems ROS: Yes All systems reviewed with the patient and are negative except as otherwise documented Exam Vital Signs (past 8 hours): - 04/26/24 06:58 04/26/24 08:20 04/26/24 08:25 Temperature 98.5 F 97.7 F Pulse Rate 101 H 78 76 Respiratory Rate 14 17 13 Blood Pressure 144/84 H 108/76 118/65 Pulse Oximetry 95 91 92 Oxygen Delivery Method Room Air Simple Mask Simple Mask Oxygen Flow Rate 8 2 04/26/24 08:30 04/26/24 08:51 04/26/24 09:30 Temperature 97.2 F L Pulse Rate 76 87 Respiratory Rate 13 13 Blood Pressure 117/78 105/78 Pulse Oximetry 92 97 91 Oxygen Delivery Method Simple Mask Room Air Room Air Oxygen Flow Rate 2 04/26/24 10:52 04/26/24 11:00 04/26/24 11:15 Temperature 98.3 F 97.0 F L Pulse Rate 72 89 Respiratory Rate 28 H 16 Blood Pressure 102/59 L 130/58 L Pulse Oximetry 95 97 Oxygen Delivery Method Nasal Cannula Nasal Cannula Oxygen Flow Rate 2 2 Oxygen Delivery Method Nasal Cannula Oxygen Flow Rate 2 Narrative Exam Narrative: GENERAL: This is a well-nourished, well-developed patient, in appears mildly nauseated, occasionally retching, with mildly labored breathing. HEAD: Atraumatic. Normocephalic. No temporal or scalp tenderness. EYES: Pupils equal round and reactive. Extraocular motions intact. No scleral icterus. No injection or drainage. ENT: Mucous membranes pink and moist. NECK: Trachea midline. No JVD, bruits or lymphadenopathy. Supple, nontender, no meningeal signs. CARDIOVASCULAR: Regular rate and rhythm without murmurs, gallops, or rubs. RESPIRATORY: Coarse rhonchi bilateral lungs, no wheezing, good air movement all lung johnson. GASTROINTESTINAL: Abdomen soft, non-tender, nondistended. EXTREMITIES: No clubbing, cyanosis, or edema. NEUROLOGIC: Alert, oriented, speech fluent, full upper and lower motor strength, no focal deficits evident. DERMATOLOGIC: No rashes or skin lesions. Objective Imaging Chest x-ray: Radiologist's impression: New left upper lobe opacity. This could represent aspiration, pneumonia or likely atelectasis. Assessment & Plan Assessment & Plan narrative: 1. Left upper lobe aspiration pneumonia. This occurred while the patient was waking from sedation in the left lateral decubitus position. She notes a history of aspiration after anesthesia in the past, though not in over 10 years. Administer IV Levaquin 500 mg daily. Check CMP and CB C. Admit to medical floor for observation, oximetry, and antiemetics as needed. Likely discharge home tomorrow. 2. Hypoxemia due to 1., with transient acute hypoxic respiratory failure. Mild and responsive to low-flow supplemental oxygen. Continue to monitor. 3. Status post screening colonoscopy, with polypectomy x2. No concerning findings. 4. History of lung cancer, without known recurrence. 5. Reactive airways disease. Continue routine Advair and albuterol as needed. 6. Hyperlipidemia. Continue routine medication. 7. Code status: Full code. Quality MIPS - Admit I confirm the patient?s Advance Care Plan is present, Code status is documented, Surrogate decision maker is in patient?s record [If Yes, STOP here]: Yes MIPS - Meds 'Current medications' to include all prescriptions, [id number] products, herbals, cannabis/cannabidiol products, and vitamin/mineral/dietary (nutritional) supplements. I have utilized all available resources to obtain, update, or review the patient?s current medications. [If Yes, STOP here]: Yes PROFEE Charge Codes Initial inpatient/observation care: 32018
[2024-04-26] MEDS: levoFLOXacin 500 MG/100 ML PIGGYBACK 100 MG IV (12:48)
[2024-04-26 13:03] LABS: Add Manual Diff / Slide Review NO; Alanine Aminotransferase 54 IU/L (<35); Albumin 4.2 g/dL (3.5-5.0); Albumin Globulin Ratio 1.4 (1.0-2.8); Alkaline Phosphatase 112 U/L (38-126); Aspartate Aminotransferase 44 IU/L (14-36); BUN Creatinine Ratio 14.6 (6-22); Basophils Absolute Auto 0 /uL (0-100); Basophils Percent Auto 0.2 % (0-2); Bilirubin Total 0.5 mg/dL (0.2-1.3); Blood Urea Nitrogen 12 mg/dL (7-17); Calcium 8.7 mg/dL (8.4-10.2); Carbon Dioxide 23 mmol/L (22-32); Chloride 106 mmol/L (98-107); Eosinophils Absolute Auto 0 /uL (0-450); Eosinophils Percent Auto 0.1 % (2-4); Estimated Glomerular Filt Rate > 60 mL/min (>60); Globulin 3.1 g/dL (1.7-4.1); Glucose 134 mg/dL (80-110); HEMOLYSIS < 15 (0-50); Hematocrit 39.3 % (36-46); Hemoglobin 13.2 g/dL (12.0-16.0); Lymphocytes Absolute Auto 700 /uL (1100-4500); Lymphocytes Percent Auto 3.9 % (25-40); Mean Corpuscular HGB Conc 33.4 % (30-36); Mean Corpuscular Hemoglobin 29.8 PG (26-34); Mean Corpuscular Volume 89.2 fL (80-100); Monocytes Absolute Auto 900 /uL (0-900); Neutrophils Absolute Auto 15600 /uL (1500-7000); Neutrophils Percent Auto 90.8 % (50-75); Platelet Count 282 X10^3/uL (150-400); Potassium 3.8 mmol/L (3.4-5.1); Red Blood Cell Count 4.41 X10^6/uL (4.0-5.2); Red Cell Distribution Width 14.1 % (11.6-14.8); Sodium 138 mmol/L (137-145); Total Protein 7.3 g/dL (6.3-8.2); White Blood Cell Count 17.2 X10^3/uL (4.5-11.0)
[2024-04-26] MEDS: ALBUTEROL 2.5 MG/3 ML NEB (ADULT) INH ×2 (14:58→18:50)
[2024-04-26] MEDS: MONTELUKAST 10 MG TABLET PO (16:12)
[2024-04-26] MEDS: ACETAMINOPHEN 325 MG TABLET 650 MG PO (16:12)
[2024-04-26] MEDS: ATORVASTATIN 20 MG TABLET 40 MG PO (20:11)
[2024-04-27] VITALS (7 sets, daily range): BP systolic 101–127; BP diastolic 54–66; PULSE 71–84; RESP 15–20; TEMP 36.2–36.7; O2SAT 93–97
[2024-04-27] MEDS: ACETAMINOPHEN 325 MG TABLET 650 MG PO (04:18)
[2024-04-27 05:12] LABS: Add Manual Diff / Slide Review NO; Basophils Absolute Auto 100 /uL (0-100); Basophils Percent Auto 0.5 % (0-2); Eosinophils Absolute Auto 100 /uL (0-450); Eosinophils Percent Auto 0.7 % (2-4); Hematocrit 35.4 % (36-46); Hemoglobin 11.9 g/dL (12.0-16.0); Lymphocytes Absolute Auto 1600 /uL (1100-4500); Lymphocytes Percent Auto 11.4 % (25-40); Mean Corpuscular HGB Conc 33.7 % (30-36); Monocytes Absolute Auto 900 /uL (0-900); Monocytes Percent Auto 6.5 % (3-14); Neutrophils Absolute Auto 11300 /uL (1500-7000); Neutrophils Percent Auto 80.9 % (50-75); Platelet Count 246 X10^3/uL (150-400); Red Blood Cell Count 3.98 X10^6/uL (4.0-5.2); Red Cell Distribution Width 13.9 % (11.6-14.8); White Blood Cell Count 13.9 X10^3/uL (4.5-11.0)
[2024-04-27 05:37] LABS: Alanine Aminotransferase 39 IU/L (<35); Albumin 3.6 g/dL (3.5-5.0); Albumin Globulin Ratio 1.3 (1.0-2.8); Alkaline Phosphatase 100 U/L (38-126); Aspartate Aminotransferase 30 IU/L (14-36); BUN Creatinine Ratio 11.6 (6-22); Bilirubin Total 0.7 mg/dL (0.2-1.3); Blood Urea Nitrogen 10 mg/dL (7-17); Calcium 8.4 mg/dL (8.4-10.2); Carbon Dioxide 22 mmol/L (22-32); Chloride 109 mmol/L (98-107); Estimated Glomerular Filt Rate > 60 mL/min (>60); Globulin 2.8 g/dL (1.7-4.1); Glucose 112 mg/dL (80-110); HEMOLYSIS < 15 (0-50); Potassium 3.7 mmol/L (3.4-5.1); Sodium 139 mmol/L (137-145); Total Protein 6.4 g/dL (6.3-8.2)
--- NOTE | 2024-04-27 08:23 | P.DS_ITS ---
History of Present Illness History of Present Illness Date Patient Seen: 04/27/24 Time Patient Seen: 08:10 Date of Onset of Symptoms: 04/26/24 Chief complaint: Screening Colonoscopy/aspiration Narrative: 63-year-old woman under the primary care of Dr. Hussein Escalera presented today for an elective screening colonoscopy and while sedated following the colonoscopy experienced emesis of clear gastric contents, with transient hypoxemia. Oxygen was placed and she was transferred to the recovery room. She is seen in the PACU with her at bedside. She reports shortness of breath and experiencing intermittent coughing. She has a history of asthma that she states has been well controlled recently. She has a history of lung cancer status post lobectomy without known recurrence. She is admitted to the medical floor for observation given ongoing respiratory distress following this event. She states her last meal was the night before last, and she has been on a liquid diet. She denies taking any GLP-1 agonist. Discharge Providers Provider Discharge Date: 04/27/24 Primary care physician: Ever Escalera DO Discharge provider: Reji Weinstein MD Summary Hospital Course Discharge Diagnosis: 1. Left upper lobe aspiration pneumonia. This occurred while the patient was waking from sedation in the left lateral decubitus position. She notes a history of aspiration after anesthesia in the past, though not in over 10 years. Administer IV Levaquin 500 mg daily. Check CMP and CB C. Admit to medical floor for observation, oximetry, and antiemetics as needed. Likely discharge home tomorrow. 2. Hypoxemia due to 1., with transient acute hypoxic respiratory failure. Mild and responsive to low-flow supplemental oxygen. Continue to monitor. 3. Status post screening colonoscopy, with polypectomy x2. No concerning findings. 4. History of lung cancer, without known recurrence. 5. Reactive airways disease. Continue routine Advair and albuterol as needed. 6. Hyperlipidemia. Hospital Course: The patient was admitted from the PACU due to an aspiration event occurring while coming out of sedation from her colonoscopy. Her shloom oxygen saturation was 91%, and she was administered supplemental oxygen, IV antibiotics and monitored on the medical floor, returned to baseline condition and with complete resolution of hypoxemia overnight. [place] blood count [place] initially 15157 improved to 13,000 thousand, likely an acute phase reaction. Given her long- standing reactive airways disease a short course of antibiotics was prescribed at discharge, with ongoing use of her regular reactive airway disease medications. No other issues arose. Status at Discharge Cognitive/behavioral status at discharge: oriented Functional status at discharge: independent ambulation Overall status at discharge: patient is back to baseline Time Spent with Patient Time spent: Less than 30 minutes Exam Vital Signs (past 8 hours): - 04/27/24 03:00 04/27/24 04:00 04/27/24 05:33 Temperature 98.0 F Pulse Rate 76 Respiratory Rate 18 Blood Pressure 104/55 L Pulse Oximetry 96 94 94 Oxygen Delivery Method Nasal Cannula Nasal Cannula Oxygen Flow Rate 2 0 0 04/27/24 07:00 Temperature 97.2 F L Pulse Rate 71 Respiratory Rate 20 Blood Pressure 101/54 L Pulse Oximetry 93 Oxygen Delivery Method Oxygen Flow Rate 0 Oxygen Delivery Method Nasal Cannula Oxygen Flow Rate 0 Narrative Exam Narrative: GENERAL: This is a well-nourished, well-developed patient, appears comfortable with no respiratory distress this morning. EYES: Pupils equal round and reactive. Extraocular motions intact. No scleral icterus. No injection or drainage. ENT: Mucous membranes pink and moist. NECK: Trachea midline. No JVD, bruits or lymphadenopathy. Supple, nontender, no meningeal signs. CARDIOVASCULAR: Regular rate and rhythm without murmurs, gallops, or rubs. RESPIRATORY: Clear to auscultation GASTROINTESTINAL: Abdomen soft, non-tender, nondistended. EXTREMITIES: No clubbing, cyanosis, or edema. NEUROLOGIC: Alert, oriented, speech fluent, full upper and lower motor strength, no focal deficits evident. DERMATOLOGIC: No rashes or skin lesions. Objective Imaging Chest x-ray: Radiologist's impression: New left upper lobe opacity. This could represent aspiration, pneumonia or likely atelectasis. Labs 04/27/24 04:47 04/27/24 04:47 Labs: Laboratory Results - last 24 hr 04/26/24 04/27/24 12:41 04:47 WBC 17.2 H 13.9 H RBC 4.41 3.98 L Hgb 13.2 11.9 L Hct 39.3 35.4 L MCV 89.2 89.0 MCH 29.8 30.0 MCHC 33.4 33.7 RDW 14.1 13.9 Plt Count 282 246 Neut % (Auto) 90.8 H 80.9 H Lymph % (Auto) 3.9 L 11.4 L [place] % (Auto) 5.0 6.5 Eos % (Auto) 0.1 L 0.7 L Baso % (Auto) 0.2 0.5 Neut # (Auto) 00201 H 55393 H Lymph # (Auto) 700 L 1600 [place] # (Auto) 900 900 Eos # (Auto) 0 100 Baso # (Auto) 0 100 Sodium 138 139 Potassium 3.8 3.7 Chloride 106 109 H Carbon Dioxide 23 22 BUN 12 10 Creatinine 0.82 0.86 Estimated GFR > 60 > 60 BUN/Creatinine Ratio 14.6 11.6 Glucose 134 H 112 H Calcium 8.7 8.4 Total Bilirubin 0.5 0.7 AST 44 H 30 ALT 54 H 39 H Alkaline Phosphatase 112 100 Total Protein 7.3 6.4 Albumin 4.2 3.6 Globulin 3.1 2.8 Albumin/Globulin Ratio 1.4 1.3 PFSH Medical History Age-related nuclear cataract, bilateral Upper extremity somatic dysfunction Lateral epicondylitis, right elbow Dysfunction of right eustachian tube FHx: genetic disorder Seborrheic keratoses, inflamed Cervical radiculopathy Stiff neck 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) Lung mass (01/2021) Thyroid nodule (01/2021) Low blood sugar (11/2020) Liver enzyme elevation Actinic keratosis Vision disorder Skin problem (~2013) Asthma (~2000) Seasonal allergies (~2014) Chicken pox (~1967) Abnormal Pap smear of cervix (~1989) History of urinary incontinence (~1995) Surgical History Anesthesia History of colonoscopy (~2009) S/P LEEP (~1997) History of section (~1990) Family History Father History of heart disease Mother Diabetes mellitus Sister Arthritis Sister Rheumatoid arthritis Grandfather History of heart disease Social History household members: spouse Smoking Status: Never smoker second hand exposure: Yes (I was until 2 years ago (as of 02/27/19).) alcohol intake: current substance use type: does not use Discharge Plan Discharge Plan Patient Disposition: Home Provider Discharge Comment: Followup with Dr. Escalera 1 week Discharge orders & Medications Discharge Orders: Discharge (Order); Ordered 04/27/24 Ordered By: Reji Weinstein Prescriptions: New levofloxacin 500 mg tablet 500 mg PO DAILY Qty: 4 0RF Continued multivitamin tablet 1 tab PO DAILY Calcium/Vitamin D3 2 tab PO DAILY atorvastatin [Lipitor] 40 mg tablet 40 mg PO BEDTIME Qty: 90 3RF fluticasone propion-salmeterol [Advair Diskus] 250-50 mcg/dose blister with device 1 inh INHALATION BID Qty: 180 3RF montelukast 10 mg tablet 10 mg PO QPM Qty: 90 3RF Follow up/Referrals: Inna Isaacs MD [Physician] - Ever Escalera DO [Primary Care Provider] - Diet/Activity/Treatments Diet: Diet as Tolerated Visit Report/Discharge Packet Instructions: DI for Colon Polypectomy Stand Alone Forms: Patient Portal/API, Colonoscopy Result: [facility] Surg Discharge Data Primary Care Provider: Ever Escalera Attending Provider: Reji Weinstein V Quality VTE Deep Vein Thrombosis/Pulmonary Embolism Present on Admission: No MIPS - Admit I confirm the patient?s Advance Care Plan is present, Code status is documented, Surrogate decision maker is in patient?s record [If Yes, STOP here]: Yes MIPS - Meds 'Current medications' to include all prescriptions, [id number] products, herbals, cannabis/cannabidiol products, and vitamin/mineral/dietary (nutritional) supplements. I have utilized all available resources to obtain, update, or review the patient?s current medications. [If Yes, STOP here]: Yes MIPS - DC The patient has a history of heart transplant or Left Ventricular Assist Device (LVAD). If yes, STOP here.: No The patient has current or prior documentation of left ventricular ejection fraction (LVEF) less than or equal to 40%, or moderate or severely depressed left ventricular systolic function.: No A. The patient was prescribed or already taking an Angiotensin-Converting Enzyme (AMANDA) Inhibitor, or Angiotensin Receptor Onur (ARB).: No B. The patient was prescribed or already taking a beta-onur. [If Yes to Both A & B, STOP here]: No Patient not prescribed/taking AMANDA or ARB, no reason given.: No Patient not prescribed/taking beta-onur, no reason given.: No IH PROFEE Charge Codes Discharge inpatient/observation: 81936
[2024-04-27] MEDS: ALBUTEROL 2.5 MG/3 ML NEB (ADULT) INH (08:34)
[2024-04-27] MEDS: BUDESONIDE 0.5 MG/2 ML NEB INH (08:34)
[2024-04-27] MEDS: CHOLECALCIFEROL (VITAMIN D3) 1,000 UNIT TABLET 1000 UNIT PO (09:19)
[2024-04-27] MEDS: CALCIUM CARBONATE 500 MG TAB 1000 MG PO (09:19)
[2024-04-27] MEDS: MULTIVITAMIN 1 TABLET 1 TAB PO (09:19)
--- NOTE | 2024-04-27 10:25 | PC.NURSE ---
VSS. Afebrile. Pt verbalized understanding and D/C instructions, how to take all medicaitons and when to follow up with PCP and when to call the provider's office and when to seek care at the urgent care and/or ED. All questions answered. Pt wearing her clothing, shoes, and glasses. Pt held her cellphone at time of D/C.
--- NOTE | 2024-04-27 12:28 | CM.DANOTE ---
Patient is a 63 yo female who was admitted OBS Status on 04/26/24 for post colonoscopy aspiration. Pt has [employer] and [employer] for insurance and her PCP is Dr. Ever Escalera. EMR was reviewed. Per MD, pt had her scheduled colonoscopy in the OR when she had emesis with aspiration and due to her hx of lung CA with prior lobectomy pt became hypoxic and admitted overnight for monitoring and medication and now medically stable to discharge home today with no identified barriers to discharge. Patient confirms she lives in [place] with her and both are active and independent at baseline and pt does not use DME for ambulation and still drives. Preference is home today via spouse POV and he is available for assist if needed and pt does not anticipate any needs at discharge today. Pt plans to transport home before lunch time. Plan: Patient to d/c home today on PO abx via spouse POV and outpt f/u and no further SW needs at this time. 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 No Advance Directives on File No History Provided By Patient,Significant Other, Medical Record Has Patient been admitted in last 30 No days? Prior Living Arrangements House Household Members spouse Type of transporation used prior to Drives own vehicle admit Independent with ADL's Yes Is patient alert and oriented? Yes Caregiver for Another No Barriers to Discharge No Discharge Plan Home Transportation Arrangement spouse bedside and will transport home today Referrals Initiated None needed Whiteboard Updated in Patient Room with Yes name and ext. # of Supervisor Dry Cleaning Review Status In Process Please Provide Date Initial DC 04/27/24 Assessment Was Performed Next Review Type Continued Stay Review
== END 2024-04-27 10:26 | disposition home or self-care (01) ==
LOC: ENDO 09:20 → AC 11:08 → ENDO 04-29 06:21
PROVIDERS: Internal Medicine; Admitting Provider Surgery; PCP Family Medicine; Referring Provider Surgery; Visit Provider Surgery
PROC: 0DJD8ZZ Inspection of Lower Intestinal Tract, Via Natural or Artificial Opening Endoscopic (ICD-10-PCS; CPT 45378; principal; 2024-04-26 07:45)
DX: Z12.11 Encounter for screening for malignant neoplasm of colon (principal); J95.4 Chemical pneumonitis due to anesthesia; J45.909 Unspecified asthma, uncomplicated; K63.5 Polyp of colon
CPT/HCPCS: 45380; 36415; 71045; 80053; 85025; 94640; 94760; G0378; J1956; J2405; J2704; J7613

== ENCOUNTER → 2024-09-23 12:56 | Outpatient (CLI) | payer OTHER, SELFPAY ==
[2024-04-26 14:58] VITALS: BMI 32.5
--- NOTE | 2024-09-23 12:57 | DI.MG.S_ITS ---
BILATERAL DIGITAL SCREENING MAMMOGRAM 3D/2D WITH CAD: 09/23/2024 CLINICAL: Routine screening. Comparison is made to exams dated: 09/01/2023 mammogram, 08/31/2022 mammogram, 08/12/2021 mammogram, 08/04/2020 mammogram, 07/02/2019 mammogram - [facility], and 05/04/2018 mammogram - [facility]. The breasts are heterogeneously dense, which may obscure small masses (category c / 51-75% glandular tissue). Current study was also evaluated with a Computer Aided Detection (CAD) system. There is a focal asymmetry in the right breast at 6 o'clock posterior depth. No other significant masses, calcifications, or other findings are seen in either breast. IMPRESSION: INCOMPLETE: NEED ADDITIONAL IMAGING EVALUATION The focal asymmetry in the right breast is indeterminate. A diagnostic mammogram and ultrasound is recommended. Based on the Tyrer Cuzick model (a risk assessment model) the patient's lifetime risk is 12.0% and her 10 year risk is 5.6%. According to the ACR, ACS, and NCCN guidelines, an annual breast MRI exam along with mammogram is recommended if the patient's lifetime risk is 20% or greater. This exam was interpreted at Station ID: [id number]. NOTE: For mammograms, a report in lay terms will be sent to the patient. Approximately 15% of breast malignancies will not be visualized mammographically. In the management of a palpable breast mass, a negative mammogram must not discourage biopsy of a clinically suspicious lesion. Electronically Signed By: Loren Lee M.D., Ph.D. eb/:09/23/2024 16:31:27 letter sent: Additional Imaging Needed ACR BI-RADS Category 0: Incomplete: Need Additional Imaging Evaluation
== END ==
PROVIDERS: PCP Family Medicine; Referring Provider Family Medicine; Visit Provider Family Medicine
DX: Z12.31 Encounter for screening mammogram for malignant neoplasm of breast (principal); R92.333 Mammographic heterogeneous density, bilateral breasts
CPT/HCPCS: 77063; 77067

== ENCOUNTER → 2024-10-21 09:27 | Outpatient (CLI) | payer OTHER, SELFPAY ==
[2024-04-26 14:58] VITALS: BMI 32.5
--- NOTE | 2024-10-21 09:29 | DI.MG.S_ITS ---
UNILATERAL RIGHT DIGITAL DIAGNOSTIC MAMMOGRAM 3D/2D WITH ADDITIONAL VIEWS: 10/21/2024 CLINICAL: Additional evaluation requested from prior study. Comparison is made to exams dated: 09/23/2024 mammogram, 09/01/2023 mammogram, and 08/31/2022 mammogram - [facility]. The breasts are heterogeneously dense, which may obscure small masses (category c / 51-75% glandular tissue). There is a 7 mm oval equal density, probably a lymph node, in the right breast at 6 o'clock posterior depth. This is seen in additional views. No other significant masses or calcifications are seen in the breast. IMPRESSION: INCOMPLETE: NEED ADDITIONAL IMAGING EVALUATION The 7 mm asymmetry in the right breast is probably a lymph node. An ultrasound is recommended for confirmation. This was performed immediately following this exam. Based on the Tyrer Cuzick model (a risk assessment model) the patient's lifetime risk is 12.0% and her 10 year risk is 5.6%. According to the ACR, ACS, and NCCN guidelines, an annual breast MRI exam along with mammogram is recommended if the patient's lifetime risk is 20% or greater. This exam was interpreted at Station ID: [id number]. NOTE: For mammograms, a report in lay terms will be sent to the patient. Approximately 15% of breast malignancies will not be visualized mammographically. In the management of a palpable breast mass, a negative mammogram must not discourage biopsy of a clinically suspicious lesion. Electronically Signed By: Elodia maradiaga/:10/21/2024 09:55:28 letter sent: Additional Imaging Needed ACR BI-RADS Category 0: Incomplete: Need Additional Imaging Evaluation
--- NOTE | 2024-10-21 09:29 | DI.US.S_ITS ---
LIMITED ULTRASOUND OF RIGHT BREAST AND AXILLA: 10/21/2024 CLINICAL: Patient returns today to evaluate a focal asymmetry in the right breast. Comparison is made to exams dated: 10/21/2024 mammogram, 09/23/2024 mammogram, 09/01/2023 mammogram, 08/31/2022 mammogram, 08/12/2021 mammogram, and 08/04/2020 mammogram - [facility]. Color flow and real-time ultrasound of the right breast 5-7 o'clock, and axilla regions were performed. Timmons scale images of the real-time examination were reviewed. There is a 0.4 cm x 0.5 cm x 0.3 cm oval normal lymph node with a circumscribed margin in the right breast at 6 o'clock middle depth 5 cm from the nipple. This oval normal lymph node is hypoechoic with a large fatty hilum. This correlates well with mammography findings. Color flow imaging demonstrates that there is no vascularity present. NO other abnormalities in the 6:00 region. No significant abnormalities were seen sonographically in the right axilla. IMPRESSION: BENIGN There is no sonographic evidence of malignancy. The 0.4 cm x 0.5 cm x 0.3 cm oval normal lymph node in the right breast corresponds to the mammogram finding, and is benign. Return to annual mammogram screening schedule is recommended. Findings and recommendations were conveyed to the patient at time of exam. This exam was interpreted at Station ID: [id number]. Electronically Signed By: Elodia maradiaga/:10/21/2024 10:57:35 letter sent: Normal Exam ACR BI-RADS Category 2: Benign
== END ==
PROVIDERS: PCP Family Medicine; Referring Provider Family Medicine; Visit Provider Family Medicine
DX: R92.8 Other abnormal and inconclusive findings on diagnostic imaging of breast (principal); R92.333 Mammographic heterogeneous density, bilateral breasts
CPT/HCPCS: 76642; 77065; G0279

== ENCOUNTER → 2025-02-24 08:44 | Outpatient (CLI) | payer OTHER, SELFPAY ==
[2024-04-26 14:58] VITALS: BMI 32.5
[2025-02-24 09:02] LABS: Add Manual Diff / Slide Review NO; Basophils Absolute Auto 100 /uL (0-100); Basophils Percent Auto 0.8 % (0-2); Eosinophils Absolute Auto 200 /uL (0-450); Eosinophils Percent Auto 2.3 % (2-4); Hematocrit 41.2 % (36-46); Hemoglobin 13.9 g/dL (12.0-16.0); Lymphocytes Absolute Auto 1800 /uL (1100-4500); Lymphocytes Percent Auto 24.7 % (25-40); Mean Corpuscular HGB Conc 33.8 % (30-36); Mean Corpuscular Hemoglobin 30.6 PG (26-34); Mean Corpuscular Volume 90.6 fL (80-100); Monocytes Absolute Auto 600 /uL (0-900); Monocytes Percent Auto 7.8 % (3-14); Neutrophils Absolute Auto 4800 /uL (1500-7000); Neutrophils Percent Auto 64.4 % (50-75); Platelet Count 266 X10^3/uL (150-400); Red Blood Cell Count 4.55 X10^6/uL (4.0-5.2); Red Cell Distribution Width 14.1 % (11.6-14.8); White Blood Cell Count 7.5 X10^3/uL (4.5-11.0)
[2025-02-24 09:26] LABS: Alanine Aminotransferase 61 IU/L (<35); Albumin 4.5 g/dL (3.5-5.0); Albumin Globulin Ratio 1.5 (1.0-2.8); Alkaline Phosphatase 114 U/L (38-126); Aspartate Aminotransferase 46 IU/L (14-36); BUN Creatinine Ratio 13.5 (6-22); Bilirubin Total 0.6 mg/dL (0.2-1.3); Blood Urea Nitrogen 12 mg/dL (7-17); Calcium 9.5 mg/dL (8.4-10.2); Carbon Dioxide 26 mmol/L (22-32); Chloride 107 mmol/L (98-107); Cholesterol 194 mg/dL (140-199); Estimated Glomerular Filt Rate > 60 mL/min (>60); Globulin 3.1 g/dL (1.7-4.1); Glucose 95 mg/dL (70-99); HDL Cholesterol 73 mg/dL (40-60); HEMOLYSIS < 15 (0-50); LDL Cholesterol Calculated 93 mg/dL (<100); Potassium 4.5 mmol/L (3.4-5.1); Sodium 140 mmol/L (137-145); Total Protein 7.6 g/dL (6.3-8.2); Triglycerides 142 mg/dL (35-150)
[2025-02-24 09:57] LABS: TSH w/ Reflex to FT4 3.08 uIU/mL (0.47-4.68)
== END ==
PROVIDERS: PCP Family Medicine; Referring Provider Family Medicine; Visit Provider Family Medicine
DX: E04.1 Nontoxic single thyroid nodule (principal); E78.5 Hyperlipidemia, unspecified
CPT/HCPCS: 36415; 80053; 80061; 84443; 85025

== ENCOUNTER → 2025-03-10 08:07 | Outpatient (CLI) | payer OTHER, SELFPAY ==
[2024-04-26 14:58] VITALS: BMI 32.5
== END ==
PROVIDERS: PCP Family Medicine; Visit Provider Family Medicine
DX: R35.0 Frequency of micturition (principal)
CPT/HCPCS: 87077; 87086; 87186